=== PATIENT | male | born 1970 | race Two or more races ===

== ENCOUNTER 2016-05-23 11:35 | Inpatient (IN) | payer OTHER ==
[2016-05-23 12:32] VITALS: BMI 27.0
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
[2016-05-23] MEDS ORDERED: LOPERAMIDE HCL 2 MG CAPSULE PO PRN (15:14)
[2016-05-23] MEDS ORDERED: NICOTINE POLACRILEX 2 MG GUM BC PRN (15:14)
[2016-05-23] MEDS ORDERED: ACETAMINOPHEN 325 MG TABLET (FP) PO PRN (15:14)
[2016-05-23] MEDS ORDERED: P-EPHED 60MG/TRIPROLIDI 2.5MG TABLET PO PRN (15:14)
[2016-05-23] MEDS ORDERED: MAGNESIUM HYDROX 2400MG/30ML ORAL SUSPENSION 30 ML CUP PO PRN (15:14)
[2016-05-23] MEDS ORDERED: guaiFENesin/D-METHORPHAN HB 10 ML UNIT-DOSE CUPS PO PRN (15:14)
[2016-05-23] MEDS ORDERED: MENTHOL/PHENOL 1 EACH UD MM PRN (15:14)
[2016-05-23] MEDS ORDERED: MAGNESIUM CITRATE 300 ML BOTTLE PO PRN (15:14)
[2016-05-23] MEDS ORDERED: METHADONE HCL 10 MG TABLET (FOR DETOX USE ONLY) PO ONE ×2 (15:36→23:00)
[2016-05-23] MEDS: diazePAM 5 MG TABLET PO PRN (15:43)
[2016-05-23] MEDS ORDERED: INSULIN (NOVOLOG) ASPART 100 UNITS/ML 10ML VIAL ONE (16:55)
[2016-05-23] MEDS: metFORMIN HCL 500 MG TABLET (FP) PO SCH (17:36)
[2016-05-23] MEDS: NICOTINE 14 MG/24 HOURS TOPICAL PATCH TD SCH (17:36)
[2016-05-23] MEDS: INSULIN SLIDING SCALE (NOVOLOG) 1 VIAL SQ SCH (17:37)
[2016-05-23 18:54] LABS: URINE APPEARANCE CLEAR; URINE BILIRUBIN NEGATIVE (NEGATIVE); URINE BLOOD NEGATIVE (NEGATIVE); URINE COLOR LTYELLOW; URINE GLUCOSE (UA) 3+ (NEGATIVE); URINE KETONE NEGATIVE (NEGATIVE); URINE LEUK ESTERASE NEGATIVE (NEGATIVE); URINE NITRITE NEGATIVE (NEGATIVE); URINE PROTEIN NEGATIVE (NEGATIVE); URINE UROBILINOGEN NEGATIVE E.U./dl (0.2-1.0)
[2016-05-23] MEDS: THIAMINE HCL 100 MG TABLET (FP) PO SCH (22:04)
[2016-05-23] MEDS: INSULIN DETEMIR 100 UNITS/ML MDV SQ SCH (22:05)
[2016-05-23] MEDS: diphenhydrAMINE HCL 50 MG CAPSULE PO PRN (22:06)
[2016-05-24] MEDS ORDERED: INSULIN (NOVOLOG) ASPART 100 UNITS/ML 10ML VIAL ONE ×2 (07:20→16:44)
[2016-05-24] MEDS: metFORMIN HCL 500 MG TABLET (FP) PO SCH ×2 (07:23→16:30)
[2016-05-24] MEDS: INSULIN SLIDING SCALE (NOVOLOG) 1 VIAL SQ SCH ×2 (07:24→16:30)
[2016-05-24] MEDS ORDERED: METHADONE HCL 10 MG TABLET (FOR DETOX USE ONLY) PO ONE (10:00)
--- NOTE | 2016-05-24 10:07 | PN ---
[facility] COWS - Scale Resting Pulse: 0= [place] 80 or Below Sweatin=Flushed/Facial Moisture Restless Observation: 1= Difficult to Sit Still Pupil Size: 0= Normal to Room Light Bone or Joint Aches: 2= Severe Diffuse Aches Runny Nose/ Eye Tearin= Runny Nose/Eyes GI Upset > 30mins: 2= Nausea/Diarrhea Tremor Observation of Outstretched Hands: 2= Slight Tremor Visible Yawning Observation: 1= 1-2x During Session Anxiety or Irritability: 2=Irritable/Anxious Goose Flesh Skin: 0=Smooth Skin COWS Score: 14 [facility] Progress Note (SOAP) Subjective: Anxiety,tremors,interrupted sleep,sweating,muscle aches,diarrhea Objective: 05/24/16 10:06 Vital Signs - 8 hr 05/24/16 05/24/16 05/24/16 03:55 06:35 09:21 Temperature 97.6 F 98.7 F Pulse Rate 64 77 Respiratory 18 18 18 Rate Blood Pressure 128/77 121/76 Laboratory Tests 05/23/16 05/23/16 05/23/16 13:00 13:44 16:22 POC Glucometer 323 337 Urine Color Ltyellow Urine Appearance Clear Urine pH 5.0 Ur Specific [place] 1.021 Urine Protein Negative Urine Glucose (UA) 3+ H Urine Ketones Negative Urine Blood Negative Urine Nitrite Negative Urine Bilirubin Negative Urine Urobilinogen Negative Ur Leukocyte Esterase Negative 05/23/16 05/24/16 21:41 05:38 POC Glucometer 308 219 Urine Color Urine Appearance Urine pH Ur Specific [place] Urine Protein Urine Glucose (UA) Urine Ketones Urine Blood Urine Nitrite Urine Bilirubin Urine Urobilinogen Ur Leukocyte Esterase labs noted Assessment: 05/24/16 10:06 Withdrawal sx. Plan: Continue detox
[2016-05-24] MEDS: NICOTINE 14 MG/24 HOURS TOPICAL PATCH TD SCH (10:18)
[2016-05-24] MEDS: PRENATAL VITAMINS W/ FOLIC ACID TABLET (FP) PO SCH (10:18)
[2016-05-24] MEDS: diazePAM 5 MG TABLET PO PRN ×2 (10:18→22:14)
[2016-05-24 10:23] LABS: MCH 29.5 pg (25.7-33.7); MCHC 32.9 g/dl (32.0-35.9); MEAN CELL VOLUME 89.7 fl (80-96); MEAN PLT VOLUME 8.1 fl (7.5-11.1); PLATELET COUNT 394 K/MM3 (134-434); WHITE BLOOD COUNT 10.1 K/mm3 (4.0-10.0)
[2016-05-24 10:43] LABS: ALBUMIN 3.6 g/dl (3.4-5.0); ALK PHOS 101 U/L (45-117); ANION GAP 9 (8-16); BILIRUBIN,TOTAL 0.7 mg/dL (0.2-1.0); CALCIUM 8.9 mg/dL (8.5-10.1); CO2 30 mmol/L (21-32); CREATININE 0.7 mg/dL (0.7-1.3); GLUCOSE,RANDOM 294 mg/dL (74-106); SGOT/AST 24 U/L (15-37); SGPT/ALT 36 U/L (12-78); TOT PROT 7.6 g/dl (6.4-8.2)
--- NOTE | 2016-05-24 12:36 | EKG ---
Test Reason : Blood Pressure : / mmHG Vent. Rate : 065 BPM Atrial Rate : 065 BPM P-R Int : 164 ms QRS Dur : 090 ms QT Int : 388 ms P-R-T Axes : 056 026 013 degrees QTc Int : 403 ms NORMAL SINUS RHYTHM NORMAL ECG NO PREVIOUS ECGS AVAILABLE Confirmed by YNES MORALES MD ([id number]) on 05/24/2016 12:35:46 PM Referred By: Confirmed By:YNES MORALES MD
[2016-05-24] MEDS: IBUPROFEN 400 MG TABLET (FP) PO PRN ×2 (13:10→21:39)
[2016-05-24] MEDS: hydrOXYzine PAMOATE 25 MG CAPSULE (FP) PO PRN (17:36)
[2016-05-24] MEDS: MAG HYDROX/AL HYDROX/SIMETH 30 ML UNIT-DOSE CUP PO PRN (21:41)
[2016-05-24] MEDS: INSULIN DETEMIR 100 UNITS/ML MDV SQ SCH (21:58)
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
[2016-05-24] MEDS: THIAMINE HCL 100 MG TABLET (FP) PO SCH (22:11)
[2016-05-25] MEDS: diazePAM 5 MG TABLET PO PRN ×3 (05:41→21:39)
[2016-05-25] MEDS: metFORMIN HCL 500 MG TABLET (FP) PO SCH ×2 (06:21→17:51)
[2016-05-25] MEDS: INSULIN SLIDING SCALE (NOVOLOG) 1 VIAL SQ SCH ×2 (07:40→17:52)
[2016-05-25] MEDS ORDERED: METHADONE HCL 5 MG TABLET (FOR DETOX USE ONLY) PO ONE (10:00)
[2016-05-25] MEDS: PRENATAL VITAMINS W/ FOLIC ACID TABLET (FP) PO SCH (10:05)
[2016-05-25] MEDS: CYCLOBENZAPRINE HCL 10 MG TABLET (FP) PO PRN (10:06)
[2016-05-25] MEDS: NICOTINE 14 MG/24 HOURS TOPICAL PATCH TD SCH (10:07)
[2016-05-25] MEDS: IBUPROFEN 400 MG TABLET (FP) PO PRN (10:07)
--- NOTE | 2016-05-25 13:01 | PN ---
S COWS - Scale Resting Pulse: 0= [place] 80 or Below Sweatin= Chills/Flushing Restless Observation: 0= Sits Still Pupil Size: 0= Normal to Room Light Bone or Joint Aches: 1= Mild Discomfort Runny Nose/ Eye Tearin= Nasal Congestion GI Upset > 30mins: 2= Nausea/Diarrhea Tremor Observation of Outstretched Hands: 2= Slight Tremor Visible Yawning Observation: 1= 1-2x During Session Anxiety or Irritability: 2=Irritable/Anxious Goose Flesh Skin: 3=Piloerection COWS Score: 13 [facility] Progress Note (SOAP) Subjective: Tremors, Fatigue, Diarrhea, H/A, Nausea. Objective: PT. A & O X 3. 05/25/16 12:58 Vital Signs Temperature 97.1 F L 05/25/16 10:26 Pulse Rate 73 05/25/16 10:26 Respiratory Rate 18 05/25/16 10:26 Blood Pressure 134/86 05/25/16 10:26 O2 Sat by Pulse Oximetry (%) Laboratory Last Values WBC 10.1 K/mm3 (4.0-10.0) H 05/24/16 06:00 RBC 4.29 M/mm3 (4.00-5.60) 05/24/16 06:00 Hgb 12.7 GM/dL (11.7-16.9) 05/24/16 06:00 Hct 38.5 % (35.4-49) 05/24/16 06:00 MCV 89.7 fl (80-96) 05/24/16 06:00 MCHC 32.9 g/dl (32.0-35.9) 05/24/16 06:00 RDW 14.0 % (11.9-15.9) 05/24/16 06:00 Plt Count 394 K/MM3 (134-434) 05/24/16 06:00 MPV 8.1 fl (7.5-11.1) 05/24/16 06:00 Sodium 139 mmol/L (136-145) 05/24/16 06:00 Potassium 4.6 mmol/L (3.5-5.1) 05/24/16 06:00 Chloride 100 mmol/L (98-107) 05/24/16 06:00 Carbon Dioxide 30 mmol/L (21-32) 05/24/16 06:00 Anion Gap 9 (8-16) 05/24/16 06:00 BUN 18 mg/dL (7-18) D 05/24/16 06:00 Creatinine 0.7 mg/dL (0.7-1.3) 05/24/16 06:00 Creat Clearance w eGFR > 60 (>60) 05/24/16 06:00 POC Glucometer 198 UNITS (()) 05/25/16 05:39 Random Glucose 294 mg/dL (74-106) H 05/24/16 06:00 Calcium 8.9 mg/dL (8.5-10.1) 05/24/16 06:00 Total Bilirubin 0.7 mg/dL (0.2-1.0) D 05/24/16 06:00 AST 24 U/L (15-37) 05/24/16 06:00 ALT 36 U/L (12-78) 05/24/16 06:00 Alkaline Phosphatase 101 U/L (45-117) 05/24/16 06:00 Total Protein 7.6 g/dl (6.4-8.2) 05/24/16 06:00 Albumin 3.6 g/dl (3.4-5.0) 05/24/16 06:00 Urine Color Ltyellow 05/23/16 13:00 Urine Appearance Clear 05/23/16 13:00 Urine pH 5.0 (5.0-8.0) 05/23/16 13:00 Ur Specific [place] 1.021 (1.001-1.035) 05/23/16 13:00 Urine Protein Negative (NEGATIVE) 05/23/16 13:00 Urine Glucose (UA) 3+ (NEGATIVE) H 05/23/16 13:00 Urine Ketones Negative (NEGATIVE) 05/23/16 13:00 Urine Blood Negative (NEGATIVE) 05/23/16 13:00 Urine Nitrite Negative (NEGATIVE) 05/23/16 13:00 Urine Bilirubin Negative (NEGATIVE) 05/23/16 13:00 Urine Urobilinogen Negative E.U./dl (0.2-1.0) 05/23/16 13:00 Ur Leukocyte Esterase Negative (NEGATIVE) 05/23/16 13:00 RPR Titer Nonreactive (NONREACTIVE) 05/24/16 06:00 LABS NOTED. Assessment: 05/25/16 12:59 WITHDRAWAL SYMPTOMS. Plan: CONTINUE DETOX. ADVISED PATIENT TO FOLLOW-UP WITH [facility] / REHAB MEDICAL PROVIDER AFTER DISCHARGE FROM DETOX FOR GENERAL MEDICAL ASSESSMENT AND FOR ANY ABNORMAL ADMISSION LAB VALUES.
[2016-05-25] MEDS: THIAMINE HCL 100 MG TABLET (FP) PO SCH (21:36)
[2016-05-25] MEDS: diphenhydrAMINE HCL 50 MG CAPSULE PO PRN (21:37)
[2016-05-25] MEDS: INSULIN DETEMIR 100 UNITS/ML MDV SQ SCH (21:41)
[2016-05-26] MEDS: CYCLOBENZAPRINE HCL 10 MG TABLET (FP) PO PRN (05:38)
[2016-05-26] MEDS: diazePAM 5 MG TABLET PO PRN (05:38)
[2016-05-26] MEDS ORDERED: INSULIN (NOVOLOG) ASPART 100 UNITS/ML 10ML VIAL ONE ×2 (07:38→16:47)
[2016-05-26] MEDS: metFORMIN HCL 500 MG TABLET (FP) PO SCH ×2 (07:57→16:30)
[2016-05-26] MEDS: INSULIN SLIDING SCALE (NOVOLOG) 1 VIAL SQ SCH ×2 (07:58→16:30)
[2016-05-26] MEDS ORDERED: METHADONE HCL 5 MG TABLET (FOR DETOX USE ONLY) PO ONE (10:00)
[2016-05-26] MEDS: PRENATAL VITAMINS W/ FOLIC ACID TABLET (FP) PO SCH (10:10)
[2016-05-26] MEDS: NICOTINE 14 MG/24 HOURS TOPICAL PATCH TD SCH (10:11)
--- NOTE | 2016-05-26 15:06 | PN ---
[facility] Progress Note (SOAP) Subjective: Interrupted sleep, Body Aches, H/A. Objective: PT. A & O X 3, OBSERVED AMBULATING ON UNIT. 05/26/16 15:04 Vital Signs Temperature 95.9 F L 05/26/16 10:53 Pulse Rate 77 05/26/16 10:53 Respiratory Rate 18 05/26/16 10:53 Blood Pressure 131/86 05/26/16 10:53 O2 Sat by Pulse Oximetry (%) Laboratory Last Values WBC 10.1 K/mm3 (4.0-10.0) H 05/24/16 06:00 RBC 4.29 M/mm3 (4.00-5.60) 05/24/16 06:00 Hgb 12.7 GM/dL (11.7-16.9) 05/24/16 06:00 Hct 38.5 % (35.4-49) 05/24/16 06:00 MCV 89.7 fl (80-96) 05/24/16 06:00 MCHC 32.9 g/dl (32.0-35.9) 05/24/16 06:00 RDW 14.0 % (11.9-15.9) 05/24/16 06:00 Plt Count 394 K/MM3 (134-434) 05/24/16 06:00 MPV 8.1 fl (7.5-11.1) 05/24/16 06:00 Sodium 139 mmol/L (136-145) 05/24/16 06:00 Potassium 4.6 mmol/L (3.5-5.1) 05/24/16 06:00 Chloride 100 mmol/L (98-107) 05/24/16 06:00 Carbon Dioxide 30 mmol/L (21-32) 05/24/16 06:00 Anion Gap 9 (8-16) 05/24/16 06:00 BUN 18 mg/dL (7-18) D 05/24/16 06:00 Creatinine 0.7 mg/dL (0.7-1.3) 05/24/16 06:00 Creat Clearance w eGFR > 60 (>60) 05/24/16 06:00 POC Glucometer 216 UNITS (()) 05/26/16 05:37 Random Glucose 294 mg/dL (74-106) H 05/24/16 06:00 Calcium 8.9 mg/dL (8.5-10.1) 05/24/16 06:00 Total Bilirubin 0.7 mg/dL (0.2-1.0) D 05/24/16 06:00 AST 24 U/L (15-37) 05/24/16 06:00 ALT 36 U/L (12-78) 05/24/16 06:00 Alkaline Phosphatase 101 U/L (45-117) 05/24/16 06:00 Total Protein 7.6 g/dl (6.4-8.2) 05/24/16 06:00 Albumin 3.6 g/dl (3.4-5.0) 05/24/16 06:00 Urine Color Ltyellow 05/23/16 13:00 Urine Appearance Clear 05/23/16 13:00 Urine pH 5.0 (5.0-8.0) 05/23/16 13:00 Ur Specific [place] 1.021 (1.001-1.035) 05/23/16 13:00 Urine Protein Negative (NEGATIVE) 05/23/16 13:00 Urine Glucose (UA) 3+ (NEGATIVE) H 05/23/16 13:00 Urine Ketones Negative (NEGATIVE) 05/23/16 13:00 Urine Blood Negative (NEGATIVE) 05/23/16 13:00 Urine Nitrite Negative (NEGATIVE) 05/23/16 13:00 Urine Bilirubin Negative (NEGATIVE) 05/23/16 13:00 Urine Urobilinogen Negative E.U./dl (0.2-1.0) 05/23/16 13:00 Ur Leukocyte Esterase Negative (NEGATIVE) 05/23/16 13:00 RPR Titer Nonreactive (NONREACTIVE) 05/24/16 06:00 LABS NOTED. Assessment: 05/26/16 15:05 WITHDRAWAL SYMPTOMS. Plan: CONTINUE DETOX. ADVISED PATIENT TO FOLLOW-UP WITH [facility] / REHAB MEDICAL PROVIDER AFTER DISCHARGER FROM DETOX FOR GENERAL MEDICAL ASSESSMENT AND FOR ABNORMAL ADMISSION LAB VALUES.
[2016-05-26] MEDS: hydrOXYzine PAMOATE 25 MG CAPSULE (FP) PO PRN (17:38)
[2016-05-26] MEDS: diphenhydrAMINE HCL 50 MG CAPSULE PO PRN (22:14)
[2016-05-26] MEDS: THIAMINE HCL 100 MG TABLET (FP) PO SCH (22:14)
[2016-05-26] MEDS: INSULIN DETEMIR 100 UNITS/ML MDV SQ SCH (22:15)
[2016-05-27] MEDS: MAG HYDROX/AL HYDROX/SIMETH 30 ML UNIT-DOSE CUP PO PRN (03:41)
[2016-05-27] MEDS: CYCLOBENZAPRINE HCL 10 MG TABLET (FP) PO PRN (06:00)
[2016-05-27] MEDS: metFORMIN HCL 500 MG TABLET (FP) PO SCH ×2 (06:01→16:30)
[2016-05-27] MEDS: hydrOXYzine PAMOATE 25 MG CAPSULE (FP) PO PRN ×2 (06:01→17:36)
[2016-05-27] MEDS: INSULIN SLIDING SCALE (NOVOLOG) 1 VIAL SQ SCH ×2 (06:59→16:30)
[2016-05-27] MEDS ORDERED: INSULIN (NOVOLOG) ASPART 100 UNITS/ML 10ML VIAL ONE ×2 (07:23→16:44)
[2016-05-27] MEDS ORDERED: METHADONE HCL 10 MG TABLET (FOR DETOX USE ONLY) PO ONE (10:00)
[2016-05-27] MEDS: PRENATAL VITAMINS W/ FOLIC ACID TABLET (FP) PO SCH (10:27)
[2016-05-27] MEDS: NICOTINE 14 MG/24 HOURS TOPICAL PATCH TD SCH (10:27)
--- NOTE | 2016-05-27 15:34 | PN ---
S Progress Note (SOAP) Subjective: Anxious, nausea, sweating, interrupted sleep Objective: 05/27/16 15:31 Last Vital Signs Temp Pulse Resp BP Pulse Ox 96.3 F L 87 20 120/77 05/27/16 13:55 05/27/16 13:55 05/27/16 13:55 05/27/16 13:55 Laboratory Tests 05/23/16 05/23/16 05/23/16 13:00 13:44 16:22 WBC RBC Hgb Hct MCV MCHC RDW Plt Count MPV Sodium Potassium Chloride Carbon Dioxide Anion Gap BUN Creatinine Creat Clearance w eGFR POC Glucometer 323 337 Random Glucose Calcium Total Bilirubin AST ALT Alkaline Phosphatase Total Protein Albumin Urine Color Ltyellow Urine Appearance Clear Urine pH 5.0 Ur Specific [place] 1.021 Urine Protein Negative Urine Glucose (UA) 3+ H Urine Ketones Negative Urine Blood Negative Urine Nitrite Negative Urine Bilirubin Negative Urine Urobilinogen Negative Ur Leukocyte Esterase Negative RPR Titer 05/23/16 05/24/16 05/24/16 21:41 05:38 06:00 WBC 10.1 H RBC 4.29 Hgb 12.7 Hct 38.5 MCV 89.7 MCHC 32.9 RDW 14.0 Plt Count 394 MPV 8.1 Sodium Potassium Chloride Carbon Dioxide Anion Gap BUN Creatinine Creat Clearance w eGFR POC Glucometer 308 219 Random Glucose Calcium Total Bilirubin AST ALT Alkaline Phosphatase Total Protein Albumin Urine Color Urine Appearance Urine pH Ur Specific [place] Urine Protein Urine Glucose (UA) Urine Ketones Urine Blood Urine Nitrite Urine Bilirubin Urine Urobilinogen Ur Leukocyte Esterase RPR Titer 05/24/16 05/24/16 05/24/16 06:00 06:00 16:16 WBC RBC Hgb Hct MCV MCHC RDW Plt Count MPV Sodium 139 Potassium 4.6 Chloride 100 Carbon Dioxide 30 Anion Gap 9 BUN 18 D Creatinine 0.7 Creat Clearance w eGFR > 60 POC Glucometer 320 Random Glucose 294 H Calcium 8.9 Total Bilirubin 0.7 D AST 24 ALT 36 Alkaline Phosphatase 101 Total Protein 7.6 Albumin 3.6 Urine Color Urine Appearance Urine pH Ur Specific [place] Urine Protein Urine Glucose (UA) Urine Ketones Urine Blood Urine Nitrite Urine Bilirubin Urine Urobilinogen Ur Leukocyte Esterase RPR Titer Nonreactive 05/24/16 05/25/16 05/25/16 21:33 05:39 16:31 WBC RBC Hgb Hct MCV MCHC RDW Plt Count MPV Sodium Potassium Chloride Carbon Dioxide Anion Gap BUN Creatinine Creat Clearance w eGFR POC Glucometer 181 198 182 Random Glucose Calcium Total Bilirubin AST ALT Alkaline Phosphatase Total Protein Albumin Urine Color Urine Appearance Urine pH Ur Specific [place] Urine Protein Urine Glucose (UA) Urine Ketones Urine Blood Urine Nitrite Urine Bilirubin Urine Urobilinogen Ur Leukocyte Esterase RPR Titer 05/25/16 05/26/16 05/26/16 21:35 05:37 16:17 WBC RBC Hgb Hct MCV MCHC RDW Plt Count MPV Sodium Potassium Chloride Carbon Dioxide Anion Gap BUN Creatinine Creat Clearance w eGFR POC Glucometer 280 216 390 Random Glucose Calcium Total Bilirubin AST ALT Alkaline Phosphatase Total Protein Albumin Urine Color Urine Appearance Urine pH Ur Specific [place] Urine Protein Urine Glucose (UA) Urine Ketones Urine Blood Urine Nitrite Urine Bilirubin Urine Urobilinogen Ur Leukocyte Esterase RPR Titer 05/26/16 05/27/16 21:34 06:00 WBC RBC Hgb Hct MCV MCHC RDW Plt Count MPV Sodium Potassium Chloride Carbon Dioxide Anion Gap BUN Creatinine Creat Clearance w eGFR POC Glucometer 211 294 Random Glucose Calcium Total Bilirubin AST ALT Alkaline Phosphatase Total Protein Albumin Urine Color Urine Appearance Urine pH Ur Specific [place] Urine Protein Urine Glucose (UA) Urine Ketones Urine Blood Urine Nitrite Urine Bilirubin Urine Urobilinogen Ur Leukocyte Esterase RPR Titer Labs noted Assessment: 05/27/16 15:32 Withdrawal symptoms Plan: Continue detox
[2016-05-27] MEDS: INSULIN DETEMIR 100 UNITS/ML MDV SQ SCH (22:00)
[2016-05-27] MEDS: THIAMINE HCL 100 MG TABLET (FP) PO SCH (22:00)
[2016-05-27] MEDS: diphenhydrAMINE HCL 50 MG CAPSULE PO PRN (22:00)
[2016-05-28] MEDS: diphenhydrAMINE HCL 50 MG CAPSULE PO PRN (02:01)
[2016-05-28] MEDS: CYCLOBENZAPRINE HCL 10 MG TABLET (FP) PO PRN (05:58)
[2016-05-28] MEDS ORDERED: METHADONE HCL 5 MG TABLET (FOR DETOX USE ONLY) PO ONE (06:00)
[2016-05-28] MEDS: MAG HYDROX/AL HYDROX/SIMETH 30 ML UNIT-DOSE CUP PO PRN (06:01)
[2016-05-28] MEDS: INSULIN SLIDING SCALE (NOVOLOG) 1 VIAL SQ SCH (07:33)
[2016-05-28] MEDS: metFORMIN HCL 500 MG TABLET (FP) PO SCH (07:33)
[2016-05-28] MEDS ORDERED: INSULIN (NOVOLOG) ASPART 100 UNITS/ML 10ML VIAL ONE (07:41)
[2016-05-28 09:49] VITALS: BP 125/84; PULSE 20; TEMP 96.4
[2016-05-28] MEDS: PRENATAL VITAMINS W/ FOLIC ACID TABLET (FP) PO SCH (10:07)
[2016-05-28] MEDS: NICOTINE 14 MG/24 HOURS TOPICAL PATCH TD SCH (10:08)
--- NOTE | 2016-05-28 11:50 | DS ---
[facility] Detox Discharge Summary Admission Date: 05/23/16 Discharge Date: 05/28/16 - History Present History: Cocaine Dependence, Opioid Dependence Pertinent Past History: type II DM HEP C - Physical Exam Results Vital Signs: Vital Signs Temperature 96.4 F L 05/28/16 09:48 Pulse Rate 20 L 05/28/16 09:48 Respiratory Rate 87 H 05/28/16 09:48 Blood Pressure 125/84 05/28/16 09:48 O2 Sat by Pulse Oximetry (%) Pertinent Admission Physical Exam Findings: Withdrawal sx. Laboratory Last Values WBC 10.1 K/mm3 (4.0-10.0) H 05/24/16 06:00 RBC 4.29 M/mm3 (4.00-5.60) 05/24/16 06:00 Hgb 12.7 GM/dL (11.7-16.9) 05/24/16 06:00 Hct 38.5 % (35.4-49) 05/24/16 06:00 MCV 89.7 fl (80-96) 05/24/16 06:00 MCHC 32.9 g/dl (32.0-35.9) 05/24/16 06:00 RDW 14.0 % (11.9-15.9) 05/24/16 06:00 Plt Count 394 K/MM3 (134-434) 05/24/16 06:00 MPV 8.1 fl (7.5-11.1) 05/24/16 06:00 Sodium 139 mmol/L (136-145) 05/24/16 06:00 Potassium 4.6 mmol/L (3.5-5.1) 05/24/16 06:00 Chloride 100 mmol/L (98-107) 05/24/16 06:00 Carbon Dioxide 30 mmol/L (21-32) 05/24/16 06:00 Anion Gap 9 (8-16) 05/24/16 06:00 BUN 18 mg/dL (7-18) D 05/24/16 06:00 Creatinine 0.7 mg/dL (0.7-1.3) 05/24/16 06:00 Creat Clearance w eGFR > 60 (>60) 05/24/16 06:00 POC Glucometer 315 UNITS (()) 05/28/16 05:59 Random Glucose 294 mg/dL (74-106) H 05/24/16 06:00 Calcium 8.9 mg/dL (8.5-10.1) 05/24/16 06:00 Total Bilirubin 0.7 mg/dL (0.2-1.0) D 05/24/16 06:00 AST 24 U/L (15-37) 05/24/16 06:00 ALT 36 U/L (12-78) 05/24/16 06:00 Alkaline Phosphatase 101 U/L (45-117) 05/24/16 06:00 Total Protein 7.6 g/dl (6.4-8.2) 05/24/16 06:00 Albumin 3.6 g/dl (3.4-5.0) 05/24/16 06:00 Urine Color Ltyellow 05/23/16 13:00 Urine Appearance Clear 05/23/16 13:00 Urine pH 5.0 (5.0-8.0) 05/23/16 13:00 Ur Specific [place] 1.021 (1.001-1.035) 05/23/16 13:00 Urine Protein Negative (NEGATIVE) 05/23/16 13:00 Urine Glucose (UA) 3+ (NEGATIVE) H 05/23/16 13:00 Urine Ketones Negative (NEGATIVE) 05/23/16 13:00 Urine Blood Negative (NEGATIVE) 05/23/16 13:00 Urine Nitrite Negative (NEGATIVE) 05/23/16 13:00 Urine Bilirubin Negative (NEGATIVE) 05/23/16 13:00 Urine Urobilinogen Negative E.U./dl (0.2-1.0) 05/23/16 13:00 Ur Leukocyte Esterase Negative (NEGATIVE) 05/23/16 13:00 RPR Titer Nonreactive (NONREACTIVE) 05/24/16 06:00 labs noted - Treatment Hospital Course: Detox Protocol Followed, Detoxed Safely, Responded well, Discharged Condition Good, Rehab Referral Accepted Patient has Accepted a Rehab Referral to: [facility] - Medication Discharge Medications: Ambulatory Orders Insulin Glargine,Hum.rec.anlog [Lantus Solostar PEN -] 20 units SQ HS 05/23/16 Metformin HCl [Glucophage -] 500 mg PO BID 05/23/16 - Diagnosis (1) Cocaine dependence, uncomplicated Current Visit: Yes Status: Acute (2) Nicotine dependence Current Visit: Yes Status: Acute Qualifiers: Nicotine product type: cigarettes Substance use status: in withdrawal Qualified Code(s): F17.213 - Nicotine dependence, cigarettes, with withdrawal (3) Opioid dependence with withdrawal Current Visit: Yes Status: Acute (4) Diabetes mellitus Current Visit: Yes Status: Chronic Qualifiers: Diabetes mellitus complication status: without complication Diabetes mellitus terminal gauger insulin use: without assisted use (5) Hepatitis C Current Visit: Yes Status: Chronic Qualifiers: Viral hepatitis chronicity: unspecified Hepatic coma status: without hepatic coma Qualified Code(s): B19.20 - Unspecified viral hepatitis C without hepatic coma - AMA Did Patient Leave Against Medical Advice: No
--- NOTE | 2016-05-29 23:02 | EKG ---
Test Reason : Blood Pressure : / mmHG Vent. Rate : 067 BPM Atrial Rate : 067 BPM P-R Int : 158 ms QRS Dur : 086 ms QT Int : 382 ms P-R-T Axes : 060 043 019 degrees QTc Int : 403 ms NORMAL SINUS RHYTHM POSSIBLE LEFT ATRIAL ENLARGEMENT BORDERLINE ECG WHEN COMPARED WITH ECG OF 23-MAY-2016 14:50, NO SIGNIFICANT CHANGE WAS FOUND Confirmed by EMILY LAST MD ([id number]) on 05/29/2016 11:01:27 PM Referred By: Confirmed By:EMILY LAST MD
== END 2016-05-28 11:54 | disposition other institution (70) | DRG 773 ==
LOC: YASAS 11:35 → Y3N 14:53
PROVIDERS: ADMIT Internal Medicine; ATTEND Internal Medicine
PROC: HZ2ZZZZ Detoxification Services for Substance Abuse Treatment (ICD-10-PCS; principal; 2016-05-23)
DX: F11.23 Opioid dependence with withdrawal (principal); F14.20 Cocaine dependence, uncomplicated; F17.213 Nicotine dependence, cigarettes, with withdrawal; E11.9 Type 2 diabetes mellitus without complications; B19.20 Unspecified viral hepatitis C without hepatic coma; R74.0 Nonspecific elevation of levels of transaminase and lactic acid dehydrogenase [LDH]; Z79.4 Long term (current) use of insulin
CPT/HCPCS: 36415; 80053; 81003; 85027; 86593; 93005; 93010

== ENCOUNTER 2016-05-28 11:39 | Inpatient (IN) | payer OTHER ==
[2016-05-28] MEDS ORDERED: guaiFENesin/D-METHORPHAN HB 10 ML UNIT-DOSE CUPS PO PRN (12:32)
[2016-05-28] MEDS ORDERED: MAGNESIUM CITRATE 300 ML BOTTLE PO PRN (12:32)
[2016-05-28] MEDS ORDERED: P-EPHED 60MG/TRIPROLIDI 2.5MG TABLET PO PRN (12:32)
[2016-05-28] MEDS ORDERED: MAGNESIUM HYDROX 2400MG/30ML ORAL SUSPENSION 30 ML CUP PO PRN (12:32)
[2016-05-28] MEDS ORDERED: ACETAMINOPHEN 325 MG TABLET (FP) PO PRN (12:32)
[2016-05-28] MEDS ORDERED: IBUPROFEN 400 MG TABLET (FP) PO PRN (12:32)
[2016-05-28] MEDS ORDERED: diphenhydrAMINE HCL 50 MG CAPSULE PO PRN (12:32)
[2016-05-28] MEDS ORDERED: MENTHOL/PHENOL 1 EACH UD MM PRN (12:32)
[2016-05-28] MEDS ORDERED: LOPERAMIDE HCL 2 MG CAPSULE PO PRN (12:32)
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
[2016-05-28] MEDS: metFORMIN HCL 500 MG TABLET (FP) PO SCH (16:54)
[2016-05-28] MEDS ORDERED: INSULIN (NOVOLOG) ASPART 100 UNITS/ML 10ML VIAL ONE (16:56)
[2016-05-28] MEDS: INSULIN (NOVOLOG) ASPART 100 UNITS/ML 10ML VIAL SQ SCH (16:57)
[2016-05-28] MEDS: THIAMINE HCL 100 MG TABLET (FP) PO SCH (21:32)
[2016-05-28] MEDS: SUVOREXANT 10 MG TABLET PO PRN (21:33)
[2016-05-28] MEDS: INSULIN DETEMIR 100 UNITS/ML MDV SQ SCH (21:34)
[2016-05-28] MEDS: MAG HYDROX/AL HYDROX/SIMETH 30 ML UNIT-DOSE CUP PO PRN (23:12)
[2016-05-29] MEDS ORDERED: PANTOPRAZOLE 20 MG TABLET (FP) PO ONE (02:52)
[2016-05-29] MEDS: metFORMIN HCL 500 MG TABLET (FP) PO SCH ×2 (06:20→17:14)
[2016-05-29] MEDS ORDERED: INSULIN (NOVOLOG) ASPART 100 UNITS/ML 10ML VIAL ONE ×2 (06:22→17:13)
[2016-05-29] MEDS: INSULIN (NOVOLOG) ASPART 100 UNITS/ML 10ML VIAL SQ SCH ×2 (06:22→17:13)
[2016-05-29] MEDS: PRENATAL VITAMINS W/ FOLIC ACID TABLET (FP) PO SCH (09:59)
[2016-05-29] MEDS: MAG HYDROX/AL HYDROX/SIMETH 30 ML UNIT-DOSE CUP PO PRN (10:07)
[2016-05-29] MEDS: THIAMINE HCL 100 MG TABLET (FP) PO SCH (21:19)
[2016-05-29] MEDS: INSULIN DETEMIR 100 UNITS/ML MDV SQ SCH (21:20)
[2016-05-29] MEDS: SUVOREXANT 10 MG TABLET PO PRN (21:20)
[2016-05-29] MEDS ORDERED: PANTOPRAZOLE 40 MG TABLET (FP) PO SCH (22:00)
[2016-05-30 06:59] VITALS: BP 114/72; PULSE 75; TEMP 97.9
[2016-05-30] MEDS: INSULIN (NOVOLOG) ASPART 100 UNITS/ML 10ML VIAL SQ SCH (07:57)
[2016-05-30] MEDS: metFORMIN HCL 500 MG TABLET (FP) PO SCH (07:59)
[2016-05-30] MEDS ORDERED: INSULIN (NOVOLOG) ASPART 100 UNITS/ML 10ML VIAL ONE (08:00)
[2016-05-30] MEDS: PRENATAL VITAMINS W/ FOLIC ACID TABLET (FP) PO SCH (10:10)
--- NOTE | 2016-05-31 13:30 | PN ---
[facility] Progress Note Note: signed out ama on 05/31/15, please see medical staff notes.
== END 2016-05-30 14:50 | disposition left against medical advice (07) | DRG 770 ==
LOC: YASAS 11:39 → Y5N 11:40
PROVIDERS: ADMIT Psychiatry & Neurology Psychiatry; ATTEND Psychiatry & Neurology Psychiatry
PROC: HZ42ZZZ Group Counseling for Substance Abuse Treatment, Cognitive-Behavioral (ICD-10-PCS; principal; 2016-05-28)
DX: F11.20 Opioid dependence, uncomplicated (principal); F14.20 Cocaine dependence, uncomplicated; F19.282 Other psychoactive substance dependence with psychoactive substance-induced sleep disorder; E11.9 Type 2 diabetes mellitus without complications

== ENCOUNTER 2016-07-30 12:29 | Inpatient (IN) | payer OTHER ==
[2016-07-30 16:09] VITALS: BMI 25.9
--- NOTE | 2016-07-30 17:46 | HP ---
COWS - Scale Resting Pulse: 0= [place] 80 or Below Sweatin= Chills/Flushing Restless Observation: 3= Extraneous Movement Pupil Size: 0= Normal to Room Light Bone or Joint Aches: 2= Severe Diffuse Aches Runny Nose/ Eye Tearin= Runny Nose/Eyes GI Upset > 30mins: 1= Stomach Cramp Tremor Observation: 2= Slight Tremor Visible Yawning Observation: 0= None Anxiety or Irritability: 2=Irritable/Anxious Goose Flesh Skin: 0=Smooth Skin COWS Score: 13 CIWA Score - CIWA Score Nausea/Vomitin-Mild Nausea/No Vomiting Muscle Tremors: 4-Moderate,w/Arms Extend Anxiety: 4-Mod. Anxious/Guarded Agitation: 4-Moderately Restless Paroxysmal Sweats: 1-Minimal Palms Moist Orientation: 1-Uncertain about Date Tacttile Disturbances: 0-None Auditory Disturbances: 0-None Visual Disturbances: 0-None Headache: 0-None Present CIWA-Ar Total Score: 15 Admission ROS S - HPI Chief Complaint: WITHDRAWAL SX Allergies/Adverse Reactions: Allergies Allergy/AdvReac Type Severity Reaction Status Date / Time No Known Allergies Allergy Verified 07/30/16 17:02 History of Present Illness: 45 YEARS OLD MALE WITH LONG HISTORY OF ALCOHOL OPIOID NICOTINE DEPENDENCE HAS DIABETES II AND DEPRESSION IS ADMITTED TO DETOX Exam Limitations: No Limitations - Ebola screening Have you traveled outside of the country in the last 21 days: No Have you had contact with anyone from an Ebola affected area: No Have you been sick,other than usual withdrawal symptoms: No Do you have a fever: No - Review of Systems Constitutional: Chills, Loss of Appetite, Changes in sleep, Unintentional Wgt. Loss, Unexplained wgt Loss EENT: reports: Other (EYE GLASSES) Respiratory: reports: No Symptoms reported Cardiac: reports: No Symptoms Reported GI: reports: Nausea, Poor Appetite, Poor Fluid Intake, Indigestion, Abdominal cramping : reports: No Symptoms Reported Musculoskeletal: reports: Back Pain, Joint Pain, Muscle Pain, Neck Pain Integumentary: reports: Change in Color (IV OPIOID ELBOWS AND NECK) Neuro: reports: Tremors Endocrine: reports: No Symptoms Reported Hematology: reports: No Symptoms Reported Psychiatric: reports: Judgement Intact, Depressed Other Systems: Reviewed and Negative Patient History - Patient Medical History Hx Anemia: No Hx Asthma: No Hx Chronic Obstructive Pulmonary Disease (COPD): No Hx Cancer: No Hx Cardiac Disorders: No Hx Congestive Heart Failure: No Hx Hypertension: No Hx Hypercholesterolemia: No Hx Pacemaker: No HX Cerebrovascular Accident: No Hx Seizures: No Hx Dementia: No Hx Diabetes: Yes Hx Gastrointestinal Disorders: Yes Hx Liver Disease: No Hx Genitourinary Disorders: No Hx Sexually Transmitted Disorders: No Hx Renal Disease (ESRD): No Hx Thyroid Disease: No Hx Human Immunodeficiency Virus (HIV): No (NEGATIVE HX) Hx Hepatitis C: Yes (UNFINISHED TREATMENT YEARS AGO. ) Hx Depression: Yes Hx Suicide Attempt: No Hx Bipolar Disorder: No Hx Schizophrenia: No - Patient Surgical History Past Surgical History: Yes Hx Neurologic Surgery: No Hx Cataract Extraction: No Hx Cardiac Surgery: No Hx Lung Surgery: No Hx Breast Surgery: No Hx Breast Biopsy: No Hx Abdominal Surgery: No Hx Appendectomy: No Hx Cholecystectomy: No Hx Genitourinary Surgery: No Hx Section: No Hx Orthopedic Surgery: No Other Surgical History: right mandible 04/2016 Anesthesia Reaction: No - PPD History Previous Implant?: Yes Documented Results: Negative w/o proof Implanted On Prior [facility] Admission?: Yes Date: 01/29/16 Results: 0 mm PPD to be Administered?: No - Smoking Cessation Smoking history: Current every day smoker Have you smoked in the past 12 months: Yes Aproximately how many cigarettes per day: 10 Cigars Per Day: 0 Hx Chewing Tobacco Use: No Initiated information on smoking cessation: Yes 'Breaking Loose' booklet given: 07/30/16 - Substance & Tx. History Hx Alcohol Use: Yes Hx Substance Use: Yes Substance Use Type: Alcohol, Cocaine, Heroin, Opiates Hx Substance Use Treatment: Yes - Substances Abused Heroin Route: Injection Frequency: Daily Amount used: 18 BAGS Age of first use: 15 Date of Last Use: 07/29/16 Alcohol Route: Oral Frequency: Daily Amount used: 1 12 OZ BEER Age of first use: 19 Date of Last Use: 07/30/16 Cocaine Route: Injection Frequency: Daily Amount used: 2 GRAMS Age of first use: 16 Date of Last Use: 07/29/16 Family Disease History - Family Disease History Family Disease History: Diabetes: Brother, Heart Disease: Mother, Other: Father ( ) Admission Physical Exam [facility] - Vital Signs Vital Signs: Vital Signs - 24 hr 07/30/16 16:08 Temperature 98.1 F Pulse Rate 68 Respiratory 20 Rate Blood Pressure 148/80 - Physical General Appearance: Yes: Appropriately Dressed, Mild Distress, Thin, Tremorous, Irritable, Sweating, Anxious HEENTM: Yes: Hearing grossly Normal, Normal ENT Inspection, Normocephalic, Normal Voice, Other (EYE GLASSES) Respiratory: Yes: Chest Non-Tender, Lungs Clear, Normal Breath Sounds, No Respiratory Distress, No Accessory Muscle Use Neck: Yes: Supple, Trachea in good position Breast: Yes: Breasts Symetrical Cardiology: Yes: Regular Rhythm, Regular Rate, S1, S2 Abdominal: Yes: Non Tender, Soft, Increased Bowel Sounds Genitourinary: Yes: Within Normal Limits Back: Yes: Normal Inspection Musculoskeletal: Yes: full range of Motion, Gait Steady, Back pain, Muscle Pain Extremities: Yes: Normal Range of Motion, Non-Tender, Tremors, Other (ELBOWS IV OPIOID) Neurological: Yes: Alert, Motor Strength 5/5, Normal Response, Depressed Affect Integumentary: Yes: Warm, Track Tubbs Lymphatic: Yes: Within Normal Limits - Diagnostic (1) Cocaine dependence, uncomplicated Current Visit: Yes Status: Chronic (2) Nicotine dependence Current Visit: Yes Status: Acute Qualifiers: Nicotine product type: cigarettes Substance use status: in withdrawal Qualified Code(s): F17.213 - Nicotine dependence, cigarettes, with withdrawal (3) Opioid dependence with withdrawal Current Visit: Yes Status: Acute (4) Hepatitis C Current Visit: Yes Status: Chronic Qualifiers: Viral hepatitis chronicity: unspecified Hepatic coma status: without hepatic coma Qualified Code(s): B19.20 - Unspecified viral hepatitis C without hepatic coma (5) Alcohol dependence with uncomplicated withdrawal Current Visit: Yes Status: Acute (6) Diabetes mellitus, type II, insulin dependent Current Visit: Yes Status: Chronic (7) Depression (emotion) Current Visit: Yes Status: Suspected Qualifiers: Depression Type: dysthymia Qualified Code(s): F34.1 - Dysthymic disorder (8) GERD (gastroesophageal reflux disease) Current Visit: Yes Status: Chronic Qualifiers: Esophagitis presence: without esophagitis Qualified Code(s): K21.9 - Gastro-esophageal reflux disease without esophagitis Cleared for Admission S - Detox or Rehab [facility] Level of Care: Medically Managed Detox Regimen/Protocol: Methadone/Librium [facility] Breath Alcohol Content Breath Alcohol Content: 0 Urine Drug Screen - Results Drug Screen Negative: No Urine Drug Screen Results: RIANA-Cocaine, OPI-Opiates, MTD-Methadone, TCA- Tricyclic Antidepress
[2016-07-30] MEDS ORDERED: chlordiazePOXIDE HCL 25 MG CAPSULE PO PRN (17:56)
[2016-07-30] MEDS ORDERED: guaiFENesin/D-METHORPHAN HB 10 ML UNIT-DOSE CUPS PO PRN (17:56)
[2016-07-30] MEDS ORDERED: MAG HYDROX/AL HYDROX/SIMETH 30 ML UNIT-DOSE CUP PO PRN (17:56)
[2016-07-30] MEDS ORDERED: NICOTINE POLACRILEX 2 MG GUM BC PRN (17:56)
[2016-07-30] MEDS ORDERED: MAGNESIUM HYDROX 2400MG/30ML ORAL SUSPENSION 30 ML CUP PO PRN (17:56)
[2016-07-30] MEDS ORDERED: MENTHOL/PHENOL 1 EACH UD MM PRN (17:56)
[2016-07-30] MEDS ORDERED: LOPERAMIDE HCL 2 MG CAPSULE PO PRN (17:56)
[2016-07-30] MEDS ORDERED: ACETAMINOPHEN 325 MG TABLET (FP) PO PRN (17:56)
[2016-07-30] MEDS ORDERED: MAGNESIUM CITRATE 300 ML BOTTLE PO PRN (17:56)
[2016-07-30] MEDS ORDERED: P-EPHED 60MG/TRIPROLIDI 2.5MG TABLET PO PRN (17:56)
[2016-07-30] MEDS ORDERED: METHADONE HCL 10 MG TABLET (FOR DETOX USE ONLY) PO ONE ×2 (18:45→23:00)
[2016-07-30] MEDS ORDERED: INSULIN (NOVOLOG) ASPART 100 UNITS/ML 10ML VIAL ONE (21:07)
[2016-07-30] MEDS: INSULIN DETEMIR 100 UNITS/ML MDV SQ SCH (21:32)
[2016-07-30] MEDS: INSULIN SLIDING SCALE (NOVOLOG) 1 VIAL SQ SCH (21:32)
[2016-07-30] MEDS: chlordiazePOXIDE HCL 25 MG CAPSULE PO SCH (22:21)
[2016-07-30] MEDS: THIAMINE HCL 100 MG TABLET (FP) PO SCH (22:21)
[2016-07-30] MEDS: diphenhydrAMINE HCL 50 MG CAPSULE PO PRN (22:22)
[2016-07-30] MEDS: RANITIDINE HCL 150 MG TABLET (FP) PO SCH (22:22)
[2016-07-30 23:23] LABS: URINE APPEARANCE CLEAR; URINE BILIRUBIN NEGATIVE (NEGATIVE); URINE BLOOD NEGATIVE (NEGATIVE); URINE COLOR YELLOW; URINE GLUCOSE (UA) 3+ (NEGATIVE); URINE KETONE NEGATIVE (NEGATIVE); URINE LEUK ESTERASE NEGATIVE (NEGATIVE); URINE NITRITE NEGATIVE (NEGATIVE); URINE PROTEIN NEGATIVE (NEGATIVE); URINE UROBILINOGEN NEGATIVE E.U./dl (0.2-1.0)
[2016-07-31] MEDS: chlordiazePOXIDE HCL 25 MG CAPSULE PO SCH ×4 (05:59→22:36)
[2016-07-31] MEDS: INSULIN SLIDING SCALE (NOVOLOG) 1 VIAL SQ SCH ×4 (07:42→22:39)
[2016-07-31] MEDS: metFORMIN HCL 500 MG TABLET (FP) PO SCH ×2 (07:42→18:08)
[2016-07-31] MEDS ORDERED: METHADONE HCL 10 MG TABLET (FOR DETOX USE ONLY) PO SCH (10:00)
[2016-07-31 10:01] LABS: MCH 29.5 pg (25.7-33.7); MCHC 32.9 g/dl (32.0-35.9); MEAN CELL VOLUME 89.8 fl (80-96); MEAN PLT VOLUME 8.2 fl (7.5-11.1); PLATELET COUNT 300 K/MM3 (134-434); RDW 14.4 % (11.9-15.9); WHITE BLOOD COUNT 5.7 K/mm3 (4.0-10.0)
[2016-07-31] MEDS: RANITIDINE HCL 150 MG TABLET (FP) PO SCH ×2 (10:20→22:36)
[2016-07-31] MEDS: PRENATAL VITAMINS W/ FOLIC ACID TABLET (FP) PO SCH (10:20)
[2016-07-31] MEDS: NICOTINE 14 MG/24 HOURS TOPICAL PATCH TD SCH (10:20)
[2016-07-31 10:33] LABS: ALBUMIN 3.5 g/dl (3.4-5.0); ALK PHOS 107 U/L (45-117); ANION GAP 7 (8-16); BILIRUBIN,TOTAL 0.6 mg/dL (0.2-1.0); CALCIUM 8.8 mg/dL (8.5-10.1); CO2 29 mmol/L (21-32); COCKROFT - GAULT 124.98; CREATININE 0.9 mg/dL (0.7-1.3); SGOT/AST 23 U/L (15-37); SGPT/ALT 35 U/L (12-78); TOT PROT 7.4 g/dl (6.4-8.2)
[2016-07-31 11:09] LABS: GLUCOSE,RANDOM 401 mg/dL (74-106)
[2016-07-31] MEDS ORDERED: INSULIN (NOVOLOG) ASPART 100 UNITS/ML 10ML VIAL ONE ×2 (11:42→17:05)
--- NOTE | 2016-07-31 12:00 | EKG ---
Test Reason : Blood Pressure : / mmHG Vent. Rate : 052 BPM Atrial Rate : 052 BPM P-R Int : 140 ms QRS Dur : 088 ms QT Int : 428 ms P-R-T Axes : 033 056 035 degrees QTc Int : 398 ms SINUS BRADYCARDIA OTHERWISE NORMAL ECG WHEN COMPARED WITH ECG OF 24-MAY-2016 20:50, NO SIGNIFICANT CHANGE WAS FOUND Confirmed by TANIA LAU MD ([id number]) on 07/31/2016 11:59:47 AM Referred By: Confirmed By:TANIA LAU MD
--- NOTE | 2016-07-31 13:26 | PN ---
[facility] CIWA - CIWA Score Nausea/Vomitin-Mild Nausea/No Vomiting Muscle Tremors: 4-Moderate,w/Arms Extend Anxiety: 4-Mod. Anxious/Guarded Agitation: 2 Paroxysmal Sweats: 2 Orientation: 0-Oriented Tacttile Disturbances: 0-None Auditory Disturbances: 2-Mild Harshness/Frighten Visual Disturbances: 3-Moderate Sensitivity Headache: 0-None Present CIWA-Ar Total Score: 18 S COWS - Scale Resting Pulse: 0= [place] 80 or Below Sweatin= Chills/Flushing Restless Observation: 0= Sits Still Pupil Size: 0= Normal to Room Light Bone or Joint Aches: 2= Severe Diffuse Aches Runny Nose/ Eye Tearin= Runny Nose/Eyes GI Upset > 30mins: 0= None Tremor Observation of Outstretched Hands: 2= Slight Tremor Visible Yawning Observation: 1= 1-2x During Session Anxiety or Irritability: 2=Irritable/Anxious Goose Flesh Skin: 3=Piloerection COWS Score: 13 S Progress Note (SOAP) Subjective: Fatigue, Interrupted sleep, Tremors. Objective: PT. A & O X 3. NO ACUTE DISTRESS. PT. DENIES CHEST PAIN. 07/31/16 13:19 Vital Signs Temperature 96.9 F L 07/31/16 09:36 Pulse Rate 56 L 07/31/16 09:36 Respiratory Rate 18 07/31/16 09:36 Blood Pressure 133/80 07/31/16 09:36 O2 Sat by Pulse Oximetry (%) Laboratory Tests 07/30/16 07/30/16 07/30/16 17:11 19:02 20:57 WBC RBC Hgb Hct MCV MCHC RDW Plt Count MPV Sodium Potassium Chloride Carbon Dioxide Anion Gap BUN Creatinine Creat Clearance w eGFR POC Glucometer 353 261 332 Random Glucose Calcium Total Bilirubin AST ALT Alkaline Phosphatase Total Protein Albumin Urine Color Urine Appearance Urine pH Urine Protein Urine Glucose (UA) Urine Ketones Urine Blood Urine Nitrite Urine Bilirubin Urine Urobilinogen Ur Leukocyte Esterase RPR Titer 07/30/16 07/31/16 07/31/16 Unknown 05:58 06:00 WBC 5.7 D RBC 4.32 Hgb 12.8 Hct 38.8 MCV 89.8 MCHC 32.9 RDW 14.4 Plt Count 300 D MPV 8.2 Sodium Potassium Chloride Carbon Dioxide Anion Gap BUN Creatinine Creat Clearance w eGFR POC Glucometer 257 Random Glucose Calcium Total Bilirubin AST ALT Alkaline Phosphatase Total Protein Albumin Urine Color Yellow Urine Appearance Clear Urine pH 6.0 Urine Protein Negative Urine Glucose (UA) 3+ H Urine Ketones Negative Urine Blood Negative Urine Nitrite Negative Urine Bilirubin Negative Urine Urobilinogen Negative Ur Leukocyte Esterase Negative RPR Titer 07/31/16 07/31/16 07/31/16 06:00 06:00 11:18 WBC RBC Hgb Hct MCV MCHC RDW Plt Count MPV Sodium 137 Potassium 4.4 Chloride 101 Carbon Dioxide 29 Anion Gap 7 L BUN 9 D Creatinine 0.9 D Creat Clearance w eGFR > 60 POC Glucometer 263 Random Glucose 401 H* D Calcium 8.8 Total Bilirubin 0.6 AST 23 ALT 35 Alkaline Phosphatase 107 Total Protein 7.4 Albumin 3.5 Urine Color Urine Appearance Urine pH Urine Protein Urine Glucose (UA) Urine Ketones Urine Blood Urine Nitrite Urine Bilirubin Urine Urobilinogen Ur Leukocyte Esterase RPR Titer Nonreactive LABS NOTED. Assessment: 07/31/16 13:22 WITHDRAWAL SYMPTOMS. Plan: CONTINUE DETOX. CONTINUE TO MONITOR BP.
--- NOTE | 2016-07-31 17:03 | CONSULT ---
[facility] Psychiatric Consult - Data Date of interview: 07/31/16 Admission source: [facility] Identifying data: Patient is approached at bedside for psychiatric evaluation.He refuses.Nursing staff is made aware.
[2016-07-31] MEDS: THIAMINE HCL 100 MG TABLET (FP) PO SCH (22:36)
[2016-07-31] MEDS: diphenhydrAMINE HCL 50 MG CAPSULE PO PRN (22:37)
[2016-07-31] MEDS: INSULIN DETEMIR 100 UNITS/ML MDV SQ SCH (22:38)
[2016-08-01] MEDS: chlordiazePOXIDE HCL 25 MG CAPSULE PO SCH ×3 (05:57→17:05)
[2016-08-01] MEDS: INSULIN SLIDING SCALE (NOVOLOG) 1 VIAL SQ SCH ×4 (07:45→22:30)
[2016-08-01] MEDS: metFORMIN HCL 500 MG TABLET (FP) PO SCH ×2 (07:45→17:05)
[2016-08-01] MEDS: NICOTINE 14 MG/24 HOURS TOPICAL PATCH TD SCH (10:39)
[2016-08-01] MEDS: PRENATAL VITAMINS W/ FOLIC ACID TABLET (FP) PO SCH (10:40)
[2016-08-01] MEDS: RANITIDINE HCL 150 MG TABLET (FP) PO SCH ×2 (10:40→22:27)
[2016-08-01] MEDS: METHADONE HCL 5 MG TABLET (FOR DETOX USE ONLY) PO SCH (10:41)
[2016-08-01] MEDS ORDERED: INSULIN (NOVOLOG) ASPART 100 UNITS/ML 10ML VIAL ONE ×3 (11:53→21:01)
--- NOTE | 2016-08-01 12:10 | PN ---
[facility] CIWA - CIWA Score Nausea/Vomitin-No Nausea/No Vomiting Muscle Tremors: 3 Anxiety: 4-Mod. Anxious/Guarded Agitation: 2 Paroxysmal Sweats: 3 Orientation: 0-Oriented Tacttile Disturbances: 2-Mild Itch/Numbness/Burn Auditory Disturbances: 0-None Visual Disturbances: 0-None Headache: 3-Moderate CIWA-Ar Total Score: 17 [facility] COWS - Scale Resting Pulse: 0= [place] 80 or Below Sweatin=Flushed/Facial Moisture Restless Observation: 1= Difficult to Sit Still Pupil Size: 0= Normal to Room Light Bone or Joint Aches: 2= Severe Diffuse Aches Runny Nose/ Eye Tearin= Nasal Congestion GI Upset > 30mins: 0= None Tremor Observation of Outstretched Hands: 2= Slight Tremor Visible Yawning Observation: 1= 1-2x During Session Anxiety or Irritability: 2=Irritable/Anxious Goose Flesh Skin: 3=Piloerection COWS Score: 14 S Progress Note (SOAP) Subjective: Interrupted sleep, Body aches, H/A, Sweating. Objective: PT. A & O X 3, OBSERVED AMBULATING ON UNIT. NO ACUTE DISTRESS. PT. DENIES CHEST PAIN. 08/01/16 12:06 Vital Signs Temperature 98 F 08/01/16 10:09 Pulse Rate 68 08/01/16 10:09 Respiratory Rate 20 08/01/16 10:09 Blood Pressure 138/89 08/01/16 10:09 O2 Sat by Pulse Oximetry (%) Laboratory Tests 07/30/16 07/30/16 07/30/16 17:11 19:02 20:57 WBC RBC Hgb Hct MCV MCHC RDW Plt Count MPV Sodium Potassium Chloride Carbon Dioxide Anion Gap BUN Creatinine Creat Clearance w eGFR POC Glucometer 353 261 332 Random Glucose Calcium Total Bilirubin AST ALT Alkaline Phosphatase Total Protein Albumin Urine Color Urine Appearance Urine pH Ur Specific [place] Urine Protein Urine Glucose (UA) Urine Ketones Urine Blood Urine Nitrite Urine Bilirubin Urine Urobilinogen Ur Leukocyte Esterase RPR Titer 07/30/16 07/31/16 07/31/16 Unknown 05:58 06:00 WBC 5.7 D RBC 4.32 Hgb 12.8 Hct 38.8 MCV 89.8 MCHC 32.9 RDW 14.4 Plt Count 300 D MPV 8.2 Sodium Potassium Chloride Carbon Dioxide Anion Gap BUN Creatinine Creat Clearance w eGFR POC Glucometer 257 Random Glucose Calcium Total Bilirubin AST ALT Alkaline Phosphatase Total Protein Albumin Urine Color Yellow Urine Appearance Clear Urine pH 6.0 Ur Specific [place] 1.010 Urine Protein Negative Urine Glucose (UA) 3+ H Urine Ketones Negative Urine Blood Negative Urine Nitrite Negative Urine Bilirubin Negative Urine Urobilinogen Negative Ur Leukocyte Esterase Negative RPR Titer 07/31/16 07/31/16 07/31/16 06:00 06:00 11:18 WBC RBC Hgb Hct MCV MCHC RDW Plt Count MPV Sodium 137 Potassium 4.4 Chloride 101 Carbon Dioxide 29 Anion Gap 7 L BUN 9 D Creatinine 0.9 D Creat Clearance w eGFR > 60 POC Glucometer 263 Random Glucose 401 H* D Calcium 8.8 Total Bilirubin 0.6 AST 23 ALT 35 Alkaline Phosphatase 107 Total Protein 7.4 Albumin 3.5 Urine Color Urine Appearance Urine pH Ur Specific [place] Urine Protein Urine Glucose (UA) Urine Ketones Urine Blood Urine Nitrite Urine Bilirubin Urine Urobilinogen Ur Leukocyte Esterase RPR Titer Nonreactive 07/31/16 07/31/16 16:30 20:48 WBC RBC Hgb Hct MCV MCHC RDW Plt Count MPV Sodium Potassium Chloride Carbon Dioxide Anion Gap BUN Creatinine Creat Clearance w eGFR POC Glucometer 280 177 Random Glucose Calcium Total Bilirubin AST ALT Alkaline Phosphatase Total Protein Albumin Urine Color Urine Appearance Urine pH Ur Specific [place] Urine Protein Urine Glucose (UA) Urine Ketones Urine Blood Urine Nitrite Urine Bilirubin Urine Urobilinogen Ur Leukocyte Esterase RPR Titer LABS NOTED. Assessment: 08/01/16 12:07 WITHDRAWAL SYMPTOMS. Plan: CONTINUE DETOX. HGB A1C ORDERED. PT. ADVISED TO FOLLOW-UP WITH AGRICULTURAL TECHNICIAN AFTER DISCHARGE FROM DETOX FOR GENERAL MEDICAL ASSESSMENT AND FOR FOLLOW-UP CARE FOR DIABETES.
[2016-08-01] MEDS ORDERED: INSULIN DETEMIR 100 UNITS/ML MDV SQ ONE (21:01)
[2016-08-01] MEDS: chlordiazePOXIDE 5 MG CAPSULE PO SCH (22:27)
[2016-08-01] MEDS: INSULIN DETEMIR 100 UNITS/ML MDV SQ SCH (22:27)
[2016-08-01] MEDS: THIAMINE HCL 100 MG TABLET (FP) PO SCH (22:27)
[2016-08-02] MEDS: chlordiazePOXIDE 5 MG CAPSULE PO SCH ×3 (05:56→16:59)
[2016-08-02] MEDS ORDERED: INSULIN (NOVOLOG) ASPART 100 UNITS/ML 10ML VIAL ONE ×4 (06:34→20:47)
[2016-08-02] MEDS: INSULIN SLIDING SCALE (NOVOLOG) 1 VIAL SQ SCH ×4 (07:00→21:08)
[2016-08-02] MEDS: metFORMIN HCL 500 MG TABLET (FP) PO SCH ×2 (07:00→16:57)
[2016-08-02] MEDS ORDERED: ONDANSETRON *ODT* 4 MG TABLET SL ONE (10:26)
[2016-08-02] MEDS: METHADONE HCL 5 MG TABLET (FOR DETOX USE ONLY) PO SCH (10:26)
[2016-08-02] MEDS ORDERED: ONDANSETRON *ODT* 4 MG TABLET SL PRN (10:27)
[2016-08-02] MEDS: NICOTINE 14 MG/24 HOURS TOPICAL PATCH TD SCH (10:27)
[2016-08-02] MEDS: RANITIDINE HCL 150 MG TABLET (FP) PO SCH ×2 (10:27→21:09)
[2016-08-02] MEDS: PRENATAL VITAMINS W/ FOLIC ACID TABLET (FP) PO SCH (10:27)
--- NOTE | 2016-08-02 12:06 | PN ---
S Progress Note (SOAP) Subjective: Fatigue, Anxious, Sweating. Objective: PT. A & O X 2 (DISORIENTED ABOUT DAY / DATE). PT. OBSERVED AMBULATING ON UNIT. NO ACUTE DISTRESS. PT. DENIES CHEST PAIN. 08/02/16 12:03 Vital Signs Temperature 96.4 F L 08/02/16 10:12 Pulse Rate 78 08/02/16 10:12 Respiratory Rate 18 08/02/16 10:12 Blood Pressure 148/82 08/02/16 10:12 O2 Sat by Pulse Oximetry (%) Laboratory Tests 07/30/16 07/30/16 07/30/16 17:11 19:02 20:57 WBC RBC Hgb Hct MCV MCHC RDW Plt Count MPV Sodium Potassium Chloride Carbon Dioxide Anion Gap BUN Creatinine Creat Clearance w eGFR POC Glucometer 353 261 332 Random Glucose Hemoglobin A1c % Calcium Total Bilirubin AST ALT Alkaline Phosphatase Total Protein Albumin Urine Color Urine Appearance Urine pH Ur Specific [place] Urine Protein Urine Glucose (UA) Urine Ketones Urine Blood Urine Nitrite Urine Bilirubin Urine Urobilinogen Ur Leukocyte Esterase RPR Titer 07/30/16 07/31/16 07/31/16 Unknown 05:58 06:00 WBC 5.7 D RBC 4.32 Hgb 12.8 Hct 38.8 MCV 89.8 MCHC 32.9 RDW 14.4 Plt Count 300 D MPV 8.2 Sodium Potassium Chloride Carbon Dioxide Anion Gap BUN Creatinine Creat Clearance w eGFR POC Glucometer 257 Random Glucose Hemoglobin A1c % Calcium Total Bilirubin AST ALT Alkaline Phosphatase Total Protein Albumin Urine Color Yellow Urine Appearance Clear Urine pH 6.0 Ur Specific [place] 1.010 Urine Protein Negative Urine Glucose (UA) 3+ H Urine Ketones Negative Urine Blood Negative Urine Nitrite Negative Urine Bilirubin Negative Urine Urobilinogen Negative Ur Leukocyte Esterase Negative RPR Titer 07/31/16 07/31/16 07/31/16 06:00 06:00 11:18 WBC RBC Hgb Hct MCV MCHC RDW Plt Count MPV Sodium 137 Potassium 4.4 Chloride 101 Carbon Dioxide 29 Anion Gap 7 L BUN 9 D Creatinine 0.9 D Creat Clearance w eGFR > 60 POC Glucometer 263 Random Glucose 401 H* D Hemoglobin A1c % Calcium 8.8 Total Bilirubin 0.6 AST 23 ALT 35 Alkaline Phosphatase 107 Total Protein 7.4 Albumin 3.5 Urine Color Urine Appearance Urine pH Ur Specific [place] Urine Protein Urine Glucose (UA) Urine Ketones Urine Blood Urine Nitrite Urine Bilirubin Urine Urobilinogen Ur Leukocyte Esterase RPR Titer Nonreactive 07/31/16 07/31/16 08/01/16 16:30 20:48 08:50 WBC RBC Hgb Hct MCV MCHC RDW Plt Count MPV Sodium Potassium Chloride Carbon Dioxide Anion Gap BUN Creatinine Creat Clearance w eGFR POC Glucometer 280 177 Random Glucose Hemoglobin A1c % 9.7 H Calcium Total Bilirubin AST ALT Alkaline Phosphatase Total Protein Albumin Urine Color Urine Appearance Urine pH Ur Specific [place] Urine Protein Urine Glucose (UA) Urine Ketones Urine Blood Urine Nitrite Urine Bilirubin Urine Urobilinogen Ur Leukocyte Esterase RPR Titer 08/01/16 08/01/16 08/01/16 11:47 16:16 20:56 WBC RBC Hgb Hct MCV MCHC RDW Plt Count MPV Sodium Potassium Chloride Carbon Dioxide Anion Gap BUN Creatinine Creat Clearance w eGFR POC Glucometer 269 182 253 Random Glucose Hemoglobin A1c % Calcium Total Bilirubin AST ALT Alkaline Phosphatase Total Protein Albumin Urine Color Urine Appearance Urine pH Ur Specific [place] Urine Protein Urine Glucose (UA) Urine Ketones Urine Blood Urine Nitrite Urine Bilirubin Urine Urobilinogen Ur Leukocyte Esterase RPR Titer 08/02/16 05:56 WBC RBC Hgb Hct MCV MCHC RDW Plt Count MPV Sodium Potassium Chloride Carbon Dioxide Anion Gap BUN Creatinine Creat Clearance w eGFR POC Glucometer 218 Random Glucose Hemoglobin A1c % Calcium Total Bilirubin AST ALT Alkaline Phosphatase Total Protein Albumin Urine Color Urine Appearance Urine pH Ur Specific [place] Urine Protein Urine Glucose (UA) Urine Ketones Urine Blood Urine Nitrite Urine Bilirubin Urine Urobilinogen Ur Leukocyte Esterase RPR Titer LABS NOTED. RESULT OF HGB A1C NOTED. 08/02/16 12:05 Assessment: 08/02/16 12:04 WITHDRAWAL SYMPTOMS. Plan: CONTINUE DETOX. ADVISED PATIENT TO FOLLOW-UP WITH LIP READING TEACHER AFTER DISCHARGE FROM DETOX FOR GENERAL MEDICAL ASSESSMENT AND FOR FOLLOW-UP TREATMENT OF DM.
[2016-08-02] MEDS: INSULIN DETEMIR 100 UNITS/ML MDV SQ SCH (21:07)
[2016-08-02] MEDS: THIAMINE HCL 100 MG TABLET (FP) PO SCH (21:08)
[2016-08-02] MEDS: diphenhydrAMINE HCL 50 MG CAPSULE PO PRN (21:21)
[2016-08-02] MEDS: chlordiazePOXIDE HCL 10 MG CAPSULE PO SCH (22:41)
[2016-08-03] MEDS: chlordiazePOXIDE HCL 10 MG CAPSULE PO SCH ×3 (06:14→16:57)
[2016-08-03] MEDS: metFORMIN HCL 500 MG TABLET (FP) PO SCH ×2 (06:16→16:57)
[2016-08-03] MEDS: INSULIN SLIDING SCALE (NOVOLOG) 1 VIAL SQ SCH ×4 (07:00→22:22)
[2016-08-03] MEDS ORDERED: METHADONE HCL 10 MG TABLET (FOR DETOX USE ONLY) PO SCH (10:00)
[2016-08-03] MEDS: PRENATAL VITAMINS W/ FOLIC ACID TABLET (FP) PO SCH (10:35)
[2016-08-03] MEDS: RANITIDINE HCL 150 MG TABLET (FP) PO SCH ×2 (10:35→22:24)
[2016-08-03] MEDS: NICOTINE 14 MG/24 HOURS TOPICAL PATCH TD SCH (10:36)
[2016-08-03] MEDS ORDERED: INSULIN (NOVOLOG) ASPART 100 UNITS/ML 10ML VIAL ONE ×2 (12:20→16:50)
--- NOTE | 2016-08-03 12:57 | PN ---
[facility] Progress Note (SOAP) Subjective: Fatigue, Anxious. Objective: PT. A & O X 3. NO ACUTE DISTRESS. PT. DENIES CHEST PAIN. 08/03/16 12:55 Vital Signs Temperature 97.0 F L 08/03/16 10:04 Pulse Rate 71 08/03/16 10:04 Respiratory Rate 18 08/03/16 10:04 Blood Pressure 142/90 08/03/16 10:04 O2 Sat by Pulse Oximetry (%) Laboratory Tests 07/30/16 07/30/16 07/30/16 17:11 19:02 20:57 WBC RBC Hgb Hct MCV MCHC RDW Plt Count MPV Sodium Potassium Chloride Carbon Dioxide Anion Gap BUN Creatinine Creat Clearance w eGFR POC Glucometer 353 261 332 Random Glucose Hemoglobin A1c % Calcium Total Bilirubin AST ALT Alkaline Phosphatase Total Protein Albumin Urine Color Urine Appearance Urine pH Ur Specific [place] Urine Protein Urine Glucose (UA) Urine Ketones Urine Blood Urine Nitrite Urine Bilirubin Urine Urobilinogen Ur Leukocyte Esterase RPR Titer 07/30/16 07/31/16 07/31/16 Unknown 05:58 06:00 WBC 5.7 D RBC 4.32 Hgb 12.8 Hct 38.8 MCV 89.8 MCHC 32.9 RDW 14.4 Plt Count 300 D MPV 8.2 Sodium Potassium Chloride Carbon Dioxide Anion Gap BUN Creatinine Creat Clearance w eGFR POC Glucometer 257 Random Glucose Hemoglobin A1c % Calcium Total Bilirubin AST ALT Alkaline Phosphatase Total Protein Albumin Urine Color Yellow Urine Appearance Clear Urine pH 6.0 Ur Specific [place] 1.010 Urine Protein Negative Urine Glucose (UA) 3+ H Urine Ketones Negative Urine Blood Negative Urine Nitrite Negative Urine Bilirubin Negative Urine Urobilinogen Negative Ur Leukocyte Esterase Negative RPR Titer 07/31/16 07/31/16 07/31/16 06:00 06:00 11:18 WBC RBC Hgb Hct MCV MCHC RDW Plt Count MPV Sodium 137 Potassium 4.4 Chloride 101 Carbon Dioxide 29 Anion Gap 7 L BUN 9 D Creatinine 0.9 D Creat Clearance w eGFR > 60 POC Glucometer 263 Random Glucose 401 H* D Hemoglobin A1c % Calcium 8.8 Total Bilirubin 0.6 AST 23 ALT 35 Alkaline Phosphatase 107 Total Protein 7.4 Albumin 3.5 Urine Color Urine Appearance Urine pH Ur Specific [place] Urine Protein Urine Glucose (UA) Urine Ketones Urine Blood Urine Nitrite Urine Bilirubin Urine Urobilinogen Ur Leukocyte Esterase RPR Titer Nonreactive 07/31/16 07/31/16 08/01/16 16:30 20:48 08:50 WBC RBC Hgb Hct MCV MCHC RDW Plt Count MPV Sodium Potassium Chloride Carbon Dioxide Anion Gap BUN Creatinine Creat Clearance w eGFR POC Glucometer 280 177 Random Glucose Hemoglobin A1c % 9.7 H Calcium Total Bilirubin AST ALT Alkaline Phosphatase Total Protein Albumin Urine Color Urine Appearance Urine pH Ur Specific [place] Urine Protein Urine Glucose (UA) Urine Ketones Urine Blood Urine Nitrite Urine Bilirubin Urine Urobilinogen Ur Leukocyte Esterase RPR Titer 08/01/16 08/01/16 08/01/16 11:47 16:16 20:56 WBC RBC Hgb Hct MCV MCHC RDW Plt Count MPV Sodium Potassium Chloride Carbon Dioxide Anion Gap BUN Creatinine Creat Clearance w eGFR POC Glucometer 269 182 253 Random Glucose Hemoglobin A1c % Calcium Total Bilirubin AST ALT Alkaline Phosphatase Total Protein Albumin Urine Color Urine Appearance Urine pH Ur Specific [place] Urine Protein Urine Glucose (UA) Urine Ketones Urine Blood Urine Nitrite Urine Bilirubin Urine Urobilinogen Ur Leukocyte Esterase RPR Titer 08/02/16 08/02/16 08/02/16 05:56 11:33 16:13 WBC RBC Hgb Hct MCV MCHC RDW Plt Count MPV Sodium Potassium Chloride Carbon Dioxide Anion Gap BUN Creatinine Creat Clearance w eGFR POC Glucometer 218 269 229 Random Glucose Hemoglobin A1c % Calcium Total Bilirubin AST ALT Alkaline Phosphatase Total Protein Albumin Urine Color Urine Appearance Urine pH Ur Specific [place] Urine Protein Urine Glucose (UA) Urine Ketones Urine Blood Urine Nitrite Urine Bilirubin Urine Urobilinogen Ur Leukocyte Esterase RPR Titer 08/02/16 08/03/16 08/03/16 20:46 06:13 11:19 WBC RBC Hgb Hct MCV MCHC RDW Plt Count MPV Sodium Potassium Chloride Carbon Dioxide Anion Gap BUN Creatinine Creat Clearance w eGFR POC Glucometer 332 254 216 Random Glucose Hemoglobin A1c % Calcium Total Bilirubin AST ALT Alkaline Phosphatase Total Protein Albumin Urine Color Urine Appearance Urine pH Ur Specific [place] Urine Protein Urine Glucose (UA) Urine Ketones Urine Blood Urine Nitrite Urine Bilirubin Urine Urobilinogen Ur Leukocyte Esterase RPR Titer LABS NOTED. 08/03/16 12:58 08/03/16 13:00 Assessment: 08/03/16 12:56 WITHDRAWAL SYMPTOMS. Plan: CONTINUE DETOX. WILL CONTINUE TO MONITOR BP. ADVISED PATIENT TO FOLLOW-UP WITH REAL ESTATE INVESTOR AFTER DISCHARGE FROM DETOX FOR GENERAL MEDICAL ASSESSMENT AND FOR HISTORY OF DIABETES MELLITUS.
[2016-08-03] MEDS: INSULIN DETEMIR 100 UNITS/ML MDV SQ SCH (22:23)
[2016-08-03] MEDS: diphenhydrAMINE HCL 50 MG CAPSULE PO PRN (22:24)
[2016-08-03] MEDS: THIAMINE HCL 100 MG TABLET (FP) PO SCH (22:24)
[2016-08-04] MEDS ORDERED: METHADONE HCL 5 MG TABLET (FOR DETOX USE ONLY) PO SCH (06:00)
[2016-08-04] MEDS: INSULIN SLIDING SCALE (NOVOLOG) 1 VIAL SQ SCH (06:11)
[2016-08-04] MEDS: metFORMIN HCL 500 MG TABLET (FP) PO SCH (06:11)
[2016-08-04 06:29] VITALS: BP 145/82; PULSE 71; TEMP 97.5
--- NOTE | 2016-08-04 13:34 | DS ---
[facility] Detox Discharge Summary Admission Date: 07/30/16 Discharge Date: 08/04/16 - History Present History: Alcohol Dependence, Cocaine Dependence, Opioid Dependence Additional Comments: ADVISED PATIENT TO FOLLOW-UP WITH RE[facility]ESTATION WORKER AFTER DISCHARGE FROM DETOX FOR GENERAL MEDICAL ASSESSMENT. Pertinent Past History: DM, Hep C, Depression, GERD. - Physical Exam Results Vital Signs: Vital Signs Temperature 97.5 F L 08/04/16 06:28 Pulse Rate 71 08/04/16 06:28 Respiratory Rate 18 08/04/16 06:28 Blood Pressure 145/82 08/04/16 06:28 O2 Sat by Pulse Oximetry (%) Pertinent Admission Physical Exam Findings: WITHDRAWAL SYMPTOMS. Laboratory Tests 07/30/16 07/30/16 07/30/16 17:11 19:02 20:57 WBC RBC Hgb Hct MCV MCHC RDW Plt Count MPV Sodium Potassium Chloride Carbon Dioxide Anion Gap BUN Creatinine Creat Clearance w eGFR POC Glucometer 353 261 332 Random Glucose Hemoglobin A1c % Calcium Total Bilirubin AST ALT Alkaline Phosphatase Total Protein Albumin Urine Color Urine Appearance Urine pH Ur Specific [place] Urine Protein Urine Glucose (UA) Urine Ketones Urine Blood Urine Nitrite Urine Bilirubin Urine Urobilinogen Ur Leukocyte Esterase RPR Titer 07/30/16 07/31/16 07/31/16 Unknown 05:58 06:00 WBC 5.7 D RBC 4.32 Hgb 12.8 Hct 38.8 MCV 89.8 MCHC 32.9 RDW 14.4 Plt Count 300 D MPV 8.2 Sodium Potassium Chloride Carbon Dioxide Anion Gap BUN Creatinine Creat Clearance w eGFR POC Glucometer 257 Random Glucose Hemoglobin A1c % Calcium Total Bilirubin AST ALT Alkaline Phosphatase Total Protein Albumin Urine Color Yellow Urine Appearance Clear Urine pH 6.0 Ur Specific [place] 1.010 Urine Protein Negative Urine Glucose (UA) 3+ H Urine Ketones Negative Urine Blood Negative Urine Nitrite Negative Urine Bilirubin Negative Urine Urobilinogen Negative Ur Leukocyte Esterase Negative RPR Titer 07/31/16 07/31/16 07/31/16 06:00 06:00 11:18 WBC RBC Hgb Hct MCV MCHC RDW Plt Count MPV Sodium 137 Potassium 4.4 Chloride 101 Carbon Dioxide 29 Anion Gap 7 L BUN 9 D Creatinine 0.9 D Creat Clearance w eGFR > 60 POC Glucometer 263 Random Glucose 401 H* D Hemoglobin A1c % Calcium 8.8 Total Bilirubin 0.6 AST 23 ALT 35 Alkaline Phosphatase 107 Total Protein 7.4 Albumin 3.5 Urine Color Urine Appearance Urine pH Ur Specific [place] Urine Protein Urine Glucose (UA) Urine Ketones Urine Blood Urine Nitrite Urine Bilirubin Urine Urobilinogen Ur Leukocyte Esterase RPR Titer Nonreactive 07/31/16 07/31/16 08/01/16 16:30 20:48 08:50 WBC RBC Hgb Hct MCV MCHC RDW Plt Count MPV Sodium Potassium Chloride Carbon Dioxide Anion Gap BUN Creatinine Creat Clearance w eGFR POC Glucometer 280 177 Random Glucose Hemoglobin A1c % 9.7 H Calcium Total Bilirubin AST ALT Alkaline Phosphatase Total Protein Albumin Urine Color Urine Appearance Urine pH Ur Specific [place] Urine Protein Urine Glucose (UA) Urine Ketones Urine Blood Urine Nitrite Urine Bilirubin Urine Urobilinogen Ur Leukocyte Esterase RPR Titer 08/01/16 08/01/16 08/01/16 11:47 16:16 20:56 WBC RBC Hgb Hct MCV MCHC RDW Plt Count MPV Sodium Potassium Chloride Carbon Dioxide Anion Gap BUN Creatinine Creat Clearance w eGFR POC Glucometer 269 182 253 Random Glucose Hemoglobin A1c % Calcium Total Bilirubin AST ALT Alkaline Phosphatase Total Protein Albumin Urine Color Urine Appearance Urine pH Ur Specific [place] Urine Protein Urine Glucose (UA) Urine Ketones Urine Blood Urine Nitrite Urine Bilirubin Urine Urobilinogen Ur Leukocyte Esterase RPR Titer 08/02/16 08/02/16 08/02/16 05:56 11:33 16:13 WBC RBC Hgb Hct MCV MCHC RDW Plt Count MPV Sodium Potassium Chloride Carbon Dioxide Anion Gap BUN Creatinine Creat Clearance w eGFR POC Glucometer 218 269 229 Random Glucose Hemoglobin A1c % Calcium Total Bilirubin AST ALT Alkaline Phosphatase Total Protein Albumin Urine Color Urine Appearance Urine pH Ur Specific [place] Urine Protein Urine Glucose (UA) Urine Ketones Urine Blood Urine Nitrite Urine Bilirubin Urine Urobilinogen Ur Leukocyte Esterase RPR Titer 08/02/16 08/03/16 08/03/16 20:46 06:13 11:19 WBC RBC Hgb Hct MCV MCHC RDW Plt Count MPV Sodium Potassium Chloride Carbon Dioxide Anion Gap BUN Creatinine Creat Clearance w eGFR POC Glucometer 332 254 216 Random Glucose Hemoglobin A1c % Calcium Total Bilirubin AST ALT Alkaline Phosphatase Total Protein Albumin Urine Color Urine Appearance Urine pH Ur Specific [place] Urine Protein Urine Glucose (UA) Urine Ketones Urine Blood Urine Nitrite Urine Bilirubin Urine Urobilinogen Ur Leukocyte Esterase RPR Titer 08/03/16 08/04/16 15:53 06:10 WBC RBC Hgb Hct MCV MCHC RDW Plt Count MPV Sodium Potassium Chloride Carbon Dioxide Anion Gap BUN Creatinine Creat Clearance w eGFR POC Glucometer 307 171 Random Glucose Hemoglobin A1c % Calcium Total Bilirubin AST ALT Alkaline Phosphatase Total Protein Albumin Urine Color Urine Appearance Urine pH Ur Specific [place] Urine Protein Urine Glucose (UA) Urine Ketones Urine Blood Urine Nitrite Urine Bilirubin Urine Urobilinogen Ur Leukocyte Esterase RPR Titer LABS NOTED. - Treatment Hospital Course: Detox Protocol Followed, Detoxed Safely, Responded well, Discharged Condition Good Patient has Accepted a Rehab Referral to: PT. ELECTING TO GO HOME. 12-STEP/AA/ NA OUTPATIENT PROGRAMS RECOMMENDED. - Medication Discharge Medications: Ambulatory Orders Insulin Glargine,Hum.rec.anlog [Lantus Solostar PEN -] 20 units SQ HS 05/23/16 Metformin HCl [Glucophage -] 500 mg PO BID 05/23/16 - Diagnosis (1) Alcohol dependence with uncomplicated withdrawal Status: Acute (2) Nicotine dependence Status: Chronic Qualifiers: Nicotine product type: cigarettes Substance use status: in withdrawal Qualified Code(s): F17.213 - Nicotine dependence, cigarettes, with withdrawal (3) Opioid dependence with withdrawal Status: Acute (4) GERD (gastroesophageal reflux disease) Status: Chronic Qualifiers: Esophagitis presence: without esophagitis Qualified Code(s): K21.9 - Gastro-esophageal reflux disease without esophagitis (5) Hepatitis C Status: Chronic Qualifiers: Viral hepatitis chronicity: unspecified Hepatic coma status: without hepatic coma Qualified Code(s): B19.20 - Unspecified viral hepatitis C without hepatic coma (6) Cocaine dependence, uncomplicated Status: Acute (7) Diabetes mellitus, type II, insulin dependent Status: Chronic - AMA Did Patient Leave Against Medical Advice: No
== END 2016-08-04 09:00 | disposition home or self-care (01) | DRG 773 ==
LOC: YASAS 12:29 → Y3N 18:17
PROVIDERS: ADMIT Internal Medicine; ATTEND Internal Medicine
PROC: HZ2ZZZZ Detoxification Services for Substance Abuse Treatment (ICD-10-PCS; principal; 2016-07-30)
DX: F11.23 Opioid dependence with withdrawal (principal); F10.230 Alcohol dependence with withdrawal, uncomplicated; F14.20 Cocaine dependence, uncomplicated; F17.213 Nicotine dependence, cigarettes, with withdrawal; F34.1 Dysthymic disorder; K21.9 Gastro-esophageal reflux disease without esophagitis; B19.20 Unspecified viral hepatitis C without hepatic coma; E11.9 Type 2 diabetes mellitus without complications; Z79.4 Long term (current) use of insulin; Z79.84 Long term (current) use of oral hypoglycemic drugs
CPT/HCPCS: 36415; 80053; 81003; 83036; 85027; 86593; 93005; 93010

== ENCOUNTER 2016-10-04 14:57 | Inpatient (IN) | payer OTHER ==
[2016-10-04 15:32] VITALS: BMI 26.2
--- NOTE | 2016-10-04 16:47 | HP ---
CIWA Score - CIWA Score Nausea/Vomitin Muscle Tremors: 3 Anxiety: 3 Agitation: 3 Paroxysmal Sweats: 2 Orientation: 0-Oriented Tacttile Disturbances: 2-Mild Itch/Numbness/Burn Auditory Disturbances: 2-Mild Harshness/Frighten Visual Disturbances: 2-Mild Sensitivity Headache: 2-Mild CIWA-Ar Total Score: 22 Admission ROS BHS - HPI Chief Complaint: i am here to stop drinking alcohol,cocaine dependence,her0in dependence,mmtp 30 mgs/day,last medicated today,last treatment [facility] 07/30/16 to 08/04/16 nicotine dependence type 2 dm on medications non compliance no medication for 1 week longest of sobriety 10 years Allergies/Adverse Reactions: Allergies Allergy/AdvReac Type Severity Reaction Status Date / Time No Known Allergies Allergy Verified 10/04/16 16:13 History of Present Illness: this 45 years old male with alcohol and cocaine dependence,also using daysi=oin, mmtp 30 mgs/day,last medicated today, requesting detox as mentioned in chief complaint Exam Limitations: No Limitations - Ebola screening Have you traveled outside of the country in the last 21 days: No Have you had contact with anyone from an Ebola affected area: No Have you been sick,other than usual withdrawal symptoms: No - Review of Systems Constitutional: Chills, Diaphoresis, Loss of Appetite, Malaise, Night Sweats, Changes in sleep, Weakness, Unintentional Wgt. Loss EENT: reports: Tearing, Nose Congestion Respiratory: reports: No Symptoms reported Cardiac: reports: No Symptoms Reported GI: reports: Diarrhea, Nausea, Poor Appetite, Vomiting : reports: No Symptoms Reported Musculoskeletal: reports: Back Pain, Muscle Pain Integumentary: reports: Dryness Neuro: reports: Headache, Tremors Endocrine: reports: No Symptoms Reported Hematology: reports: No Symptoms Reported Psychiatric: reports: No Sypmtoms Reported, Judgement Intact, Mood/Affect Appropiate, Orientated x3 Patient History - Patient Medical History Hx Anemia: No Hx Asthma: No Hx Chronic Obstructive Pulmonary Disease (COPD): No Hx Cancer: No Hx Cardiac Disorders: No Hx Congestive Heart Failure: No Hx Hypertension: No Hx Hypercholesterolemia: No Hx Pacemaker: No HX Cerebrovascular Accident: No Hx Seizures: No Hx Dementia: No Hx Diabetes: Yes (IDDM on metfomin 500 mgs po bid,lantus insulin 30 units hs) Hx Gastrointestinal Disorders: No Hx Liver Disease: No Hx Genitourinary Disorders: No Hx Sexually Transmitted Disorders: No Hx Renal Disease (ESRD): No Hx Thyroid Disease: No Hx Human Immunodeficiency Virus (HIV): No (NEGATIVE HX last 08/11) Hx Hepatitis C: Yes (UNFINISHED TREATMENT YEARS AGO. ) Hx Depression: No Hx Suicide Attempt: No Hx Bipolar Disorder: No Hx Schizophrenia: No Other Medical History: no suicidal,no homicidal - Patient Surgical History Past Surgical History: Yes Hx Neurologic Surgery: No Hx Cataract Extraction: No Hx Cardiac Surgery: No Hx Lung Surgery: No Hx Breast Surgery: No Hx Breast Biopsy: No Hx Abdominal Surgery: No Hx Appendectomy: No Hx Cholecystectomy: No Hx Genitourinary Surgery: No Hx Section: No Hx Orthopedic Surgery: No (right facial fx in may) Other Surgical History: right mandible 04/2016 Anesthesia Reaction: No - PPD History Previous Implant?: Yes Implanted On Prior [facility] Admission?: Yes Date: 01/29/16 Results: 0 mm PPD to be Administered?: No - Smoking Cessation Smoking history: Current every day smoker Have you smoked in the past 12 months: Yes Aproximately how many cigarettes per day: 10 Cigars Per Day: 0 Hx Chewing Tobacco Use: No Initiated information on smoking cessation: Yes 'Breaking Loose' booklet given: 10/04/16 - Substance & Tx. History Hx Alcohol Use: Yes Substance Use Type: Alcohol, Cocaine - Substances Abused Cocaine Route: Injection Frequency: Daily Amount used: 1 gm. Age of first use: 16 Date of Last Use: 10/04/16 Heroin Route: Injection Frequency: Daily Amount used: 10 bags Age of first use: 16 Date of Last Use: 10/04/16 Alcohol-beer Route: Oral Frequency: Daily Amount used: 6-7 (16 oz.) Age of first use: 45 Date of Last Use: 10/04/16 Family Disease History - Family Disease History Family Disease History: Diabetes: Brother, Heart Disease: Mother, Other: Father ( ) Admission Physical Exam BHS - Vital Signs Vital Signs: Vital Signs - 24 hr 10/04/16 15:31 Temperature 97 F L Pulse Rate 71 Respiratory 20 Rate Blood Pressure 117/83 - Physical General Appearance: Yes: Moderate Distress, Tremorous, Irritable, Sweating, Anxious HEENTM: Yes: Normal ENT Inspection, ANURAG, Pharynx Normal, Other (fx of right facial bone surgery in june 2016) Respiratory: Yes: Lungs Clear, Normal Breath Sounds, No Respiratory Distress Neck: Yes: Within Normal Limits, Supple, Trachea in good position Breast: Yes: Within Normal Limits Cardiology: Yes: Within Normal Limits, Regular Rhythm, Regular Rate, S1, S2 Abdominal: Yes: Normal Bowel Sounds, Non Tender, Flat, Soft Genitourinary: Yes: Within Normal Limits Back: Yes: Muscle Spasm Musculoskeletal: Yes: Back pain, Muscle Pain Extremities: Yes: Normal Range of Motion, Tremors Neurological: Yes: can dryer II-XII NML intact, Fully Oriented, Alert, Motor Strength 5/5 Integumentary: Yes: Dry Lymphatic: Yes: Within Normal Limits - Diagnostic (1) Alcohol dependence with uncomplicated withdrawal Current Visit: No Status: Acute (2) Cocaine dependence, uncomplicated Current Visit: No Status: Acute (3) Opioid dependence Current Visit: No Status: Acute (4) Hepatitis C Current Visit: No Status: Chronic Qualifiers: Viral hepatitis chronicity: unspecified Hepatic coma status: without hepatic coma Qualified Code(s): B19.20 - Unspecified viral hepatitis C without hepatic coma (5) Insulin dependent diabetes mellitus Current Visit: No Status: Chronic (6) Nicotine dependence Current Visit: No Status: Chronic Qualifiers: Nicotine product type: cigarettes Substance use status: in withdrawal Qualified Code(s): F17.213 - Nicotine dependence, cigarettes, with withdrawal (7) Zygomatic fracture Current Visit: Yes Status: Acute (8) Methadone maintenance therapy patient Current Visit: Yes Status: Acute Cleared for Admission [facility] - Detox or Rehab [facility] Level of Care: Medically Managed Detox Regimen/Protocol: Librium [facility] Breath Alcohol Content Breath Alcohol Content: 0 Urine Drug Screen - Results Drug Screen Negative: No Urine Drug Screen Results: RIANA-Cocaine, OPI-Opiates, MTD-Methadone
[2016-10-04] MEDS ORDERED: LOPERAMIDE HCL 2 MG CAPSULE PO PRN (17:05)
[2016-10-04] MEDS ORDERED: IBUPROFEN 400 MG TABLET (FP) PO PRN (17:05)
[2016-10-04] MEDS ORDERED: MENTHOL/PHENOL 1 EACH UD MM PRN (17:05)
[2016-10-04] MEDS ORDERED: NICOTINE POLACRILEX 2 MG GUM BC PRN (17:05)
[2016-10-04] MEDS ORDERED: MAGNESIUM HYDROX 2400MG/30ML ORAL SUSPENSION 30 ML CUP PO PRN (17:05)
[2016-10-04] MEDS ORDERED: MAG HYDROX/AL HYDROX/SIMETH 30 ML UNIT-DOSE CUP PO PRN (17:05)
[2016-10-04] MEDS ORDERED: guaiFENesin/D-METHORPHAN HB 10 ML UNIT-DOSE CUPS PO PRN (17:05)
[2016-10-04] MEDS ORDERED: ACETAMINOPHEN 325 MG TABLET (FP) PO PRN (17:05)
[2016-10-04] MEDS ORDERED: P-EPHED 60MG/TRIPROLIDI 2.5MG TABLET PO PRN (17:05)
[2016-10-04] MEDS ORDERED: chlordiazePOXIDE HCL 25 MG CAPSULE PO PRN (17:05)
[2016-10-04] MEDS ORDERED: MAGNESIUM CITRATE 300 ML BOTTLE PO PRN (17:05)
[2016-10-04] MEDS ORDERED: hydrOXYzine PAMOATE 25 MG CAPSULE (FP) PO PRN (17:05)
[2016-10-04] MEDS: metFORMIN HCL 500 MG TABLET (FP) PO SCH (17:44)
[2016-10-04] MEDS ORDERED: chlordiazePOXIDE HCL 25 MG CAPSULE PO ONE (18:00)
[2016-10-04] MEDS ORDERED: INSULIN (NOVOLOG) ASPART 100 UNITS/ML 10ML VIAL ONE (22:02)
[2016-10-04] MEDS: chlordiazePOXIDE HCL 25 MG CAPSULE PO SCH (22:19)
[2016-10-04] MEDS: THIAMINE HCL 100 MG TABLET (FP) PO SCH (22:19)
[2016-10-04] MEDS: INSULIN DETEMIR 100 UNITS/ML MDV SQ SCH (22:19)
[2016-10-04] MEDS: INSULIN (NOVOLOG) ASPART 100 UNITS/ML 10ML VIAL SQ SCH (22:20)
[2016-10-04 22:26] LABS: URINE APPEARANCE CLEAR; URINE BILIRUBIN NEGATIVE (NEGATIVE); URINE BLOOD NEGATIVE (NEGATIVE); URINE COLOR YELLOW; URINE GLUCOSE (UA) 3+ (NEGATIVE); URINE KETONE TRACE (NEGATIVE); URINE LEUK ESTERASE NEGATIVE (NEGATIVE); URINE NITRITE NEGATIVE (NEGATIVE); URINE PROTEIN NEGATIVE (NEGATIVE); URINE UROBILINOGEN NEGATIVE mg/dL (0.2-1.0)
[2016-10-05] MEDS: chlordiazePOXIDE HCL 25 MG CAPSULE PO SCH ×4 (06:04→22:05)
[2016-10-05] MEDS: metFORMIN HCL 500 MG TABLET (FP) PO SCH ×2 (07:10→18:08)
[2016-10-05] MEDS: INSULIN (NOVOLOG) ASPART 100 UNITS/ML 10ML VIAL SQ SCH ×3 (07:11→18:10)
--- NOTE | 2016-10-05 09:37 | EKG ---
Test Reason : Blood Pressure : / mmHG Vent. Rate : 062 BPM Atrial Rate : 062 BPM P-R Int : 162 ms QRS Dur : 090 ms QT Int : 410 ms P-R-T Axes : 063 043 030 degrees QTc Int : 416 ms NORMAL SINUS RHYTHM NORMAL ECG WHEN COMPARED WITH ECG OF 30-JUL-2016 18:08, NO SIGNIFICANT CHANGE WAS FOUND Confirmed by LENA GARCIA MD ([id number]) on 10/05/2016 9:37:20 AM Referred By: Confirmed By:LENA GARCIA MD
[2016-10-05 10:06] LABS: ALBUMIN 3.2 g/dl (3.4-5.0); ANION GAP 7 (8-16); CALCIUM 9.2 mg/dL (8.5-10.1); CO2 30 mmol/L (21-32); GLUCOSE,RANDOM 100 mg/dL (74-106)
[2016-10-05 10:10] LABS: ALK PHOS 147 U/L (45-117); BILIRUBIN,TOTAL 0.4 mg/dL (0.2-1.0); CREATININE 0.6 mg/dL (0.7-1.3); SGOT/AST 17 U/L (15-37); SGPT/ALT 41 U/L (12-78); TOT PROT 6.8 g/dl (6.4-8.2)
[2016-10-05 10:11] LABS: MCH 29.4 pg (25.7-33.7); MCHC 33.3 g/dl (32.0-35.9); MEAN CELL VOLUME 88.4 fl (80-96); MEAN PLT VOLUME 7.3 fl (7.5-11.1); PLATELET COUNT 353 K/MM3 (134-434); RDW 14.1 % (11.9-15.9)
[2016-10-05] MEDS: METHADONE HCL 10 MG TABLET PO SCH (10:25)
[2016-10-05] MEDS: PRENATAL VITAMINS W/ FOLIC ACID TABLET (FP) PO SCH (10:25)
[2016-10-05] MEDS ORDERED: INSULIN (NOVOLOG) ASPART 100 UNITS/ML 10ML VIAL ONE ×2 (11:39→17:51)
--- NOTE | 2016-10-05 12:09 | PN ---
S CIWA - CIWA Score Nausea/Vomitin Muscle Tremors: 3 Anxiety: 3 Agitation: 2 Paroxysmal Sweats: 1-Minimal Palms Moist Orientation: 0-Oriented Tacttile Disturbances: 1-Very Mild Itch/Numbness Auditory Disturbances: 1-Very Mild Visual Disturbances: 0-None Headache: 2-Mild CIWA-Ar Total Score: 16 S Progress Note (SOAP) Subjective: alert,anxious,interrupted sleep,tremor,pain in body,back Objective: 10/05/16 12:05 Vital Signs Temperature 98.1 F 10/05/16 10:16 Pulse Rate 62 10/05/16 10:16 Respiratory Rate 18 10/05/16 10:16 Blood Pressure 150/88 10/05/16 10:16 O2 Sat by Pulse Oximetry (%) ekg nsr 62/min Laboratory Last Values WBC 7.0 K/mm3 (4.0-10.0) 10/05/16 07:00 RBC 4.09 M/mm3 (4.00-5.60) 10/05/16 07:00 Hgb 12.0 GM/dL (11.7-16.9) 10/05/16 07:00 Hct 36.2 % (35.4-49) 10/05/16 07:00 MCV 88.4 fl (80-96) 10/05/16 07:00 MCH 29.4 pg (25.7-33.7) 10/05/16 07:00 MCHC 33.3 g/dl (32.0-35.9) 10/05/16 07:00 RDW 14.1 % (11.9-15.9) 10/05/16 07:00 Plt Count 353 K/MM3 (134-434) 10/05/16 07:00 MPV 7.3 fl (7.5-11.1) L D 10/05/16 07:00 Sodium 142 mmol/L (136-145) 10/05/16 07:00 Potassium 3.8 mmol/L (3.5-5.1) 10/05/16 07:00 Chloride 105 mmol/L (98-107) 10/05/16 07:00 Carbon Dioxide 30 mmol/L (21-32) 10/05/16 07:00 Anion Gap 7 (8-16) L 10/05/16 07:00 BUN 12 mg/dL (7-18) D 10/05/16 07:00 Creatinine 0.6 mg/dL (0.7-1.3) L D 10/05/16 07:00 Creat Clearance w eGFR > 60 (>60) 10/05/16 07:00 POC Glucometer 270 UNITS (()) 10/05/16 11:14 Random Glucose 100 mg/dL (74-106) D 10/05/16 07:00 Calcium 9.2 mg/dL (8.5-10.1) 10/05/16 07:00 Total Bilirubin 0.4 mg/dL (0.2-1.0) D 10/05/16 07:00 AST 17 U/L (15-37) D 10/05/16 07:00 ALT 41 U/L (12-78) 10/05/16 07:00 Alkaline Phosphatase 147 U/L (45-117) H D 10/05/16 07:00 Total Protein 6.8 g/dl (6.4-8.2) 10/05/16 07:00 Albumin 3.2 g/dl (3.4-5.0) L 10/05/16 07:00 Urine Color Yellow 10/04/16 17:34 Urine Appearance Clear 10/04/16 17:34 Urine pH 5.0 (5.0-8.0) 10/04/16 17:34 Urine Protein Negative (NEGATIVE) 10/04/16 17:34 Urine Glucose (UA) 3+ (NEGATIVE) H 10/04/16 17:34 Urine Ketones Trace (NEGATIVE) H 10/04/16 17:34 Urine Blood Negative (NEGATIVE) 10/04/16 17:34 Urine Nitrite Negative (NEGATIVE) 10/04/16 17:34 Urine Bilirubin Negative (NEGATIVE) 10/04/16 17:34 Urine Urobilinogen Negative mg/dL (0.2-1.0) 10/04/16 17:34 Ur Leukocyte Esterase Negative (NEGATIVE) 10/04/16 17:34 Assessment: 10/05/16 12:07 withdrawal symptom Plan: continue detox,bgm monitoring with insulin coverage
[2016-10-05] MEDS ORDERED: IBUPROFEN 600 MG TABLET (FP) PO PRN (12:25)
--- NOTE | 2016-10-05 12:25 | PN ---
MATT Progress Note Note: addendum patient has deformity of left index stated seen and treated at [facility] on sat sat09/29/16 has appointment at [facility] on sat10/12/16
[2016-10-05] MEDS: diphenhydrAMINE HCL 50 MG CAPSULE PO PRN (21:37)
[2016-10-05] MEDS: INSULIN DETEMIR 100 UNITS/ML MDV SQ SCH (21:37)
[2016-10-05] MEDS: THIAMINE HCL 100 MG TABLET (FP) PO SCH (21:37)
[2016-10-06] MEDS: METHADONE HCL 10 MG TABLET PO SCH (06:19)
[2016-10-06] MEDS: chlordiazePOXIDE HCL 25 MG CAPSULE PO SCH ×3 (06:19→17:43)
[2016-10-06] MEDS: metFORMIN HCL 500 MG TABLET (FP) PO SCH ×2 (06:27→17:42)
[2016-10-06] MEDS: INSULIN (NOVOLOG) ASPART 100 UNITS/ML 10ML VIAL SQ SCH ×2 (06:30→17:44)
--- NOTE | 2016-10-06 09:13 | PN ---
[facility] CIWA - CIWA Score Nausea/Vomitin-Mild Nausea/No Vomiting Muscle Tremors: 3 Anxiety: 4-Mod. Anxious/Guarded Agitation: 4-Moderately Restless Paroxysmal Sweats: 3 Orientation: 0-Oriented Tacttile Disturbances: 2-Mild Itch/Numbness/Burn Auditory Disturbances: 0-None Visual Disturbances: 0-None Headache: 0-None Present CIWA-Ar Total Score: 17 BHS Progress Note (SOAP) Subjective: Anxiety,tremors,sweating,interrupted sleep,restless,pain left index Objective: 10/06/16 09:12 Vital Signs - 8 hr 10/06/16 10/06/16 03:30 06:00 Temperature 97.7 F Pulse Rate 53 L Respiratory 18 18 Rate Blood Pressure 117/64 Laboratory Last Values WBC 7.0 K/mm3 (4.0-10.0) 10/05/16 07:00 RBC 4.09 M/mm3 (4.00-5.60) 10/05/16 07:00 Hgb 12.0 GM/dL (11.7-16.9) 10/05/16 07:00 Hct 36.2 % (35.4-49) 10/05/16 07:00 MCV 88.4 fl (80-96) 10/05/16 07:00 MCH 29.4 pg (25.7-33.7) 10/05/16 07:00 MCHC 33.3 g/dl (32.0-35.9) 10/05/16 07:00 RDW 14.1 % (11.9-15.9) 10/05/16 07:00 Plt Count 353 K/MM3 (134-434) 10/05/16 07:00 MPV 7.3 fl (7.5-11.1) L D 10/05/16 07:00 Sodium 142 mmol/L (136-145) 10/05/16 07:00 Potassium 3.8 mmol/L (3.5-5.1) 10/05/16 07:00 Chloride 105 mmol/L (98-107) 10/05/16 07:00 Carbon Dioxide 30 mmol/L (21-32) 10/05/16 07:00 Anion Gap 7 (8-16) L 10/05/16 07:00 BUN 12 mg/dL (7-18) D 10/05/16 07:00 Creatinine 0.6 mg/dL (0.7-1.3) L D 10/05/16 07:00 Creat Clearance w eGFR > 60 (>60) 10/05/16 07:00 POC Glucometer 158 UNITS (()) 10/06/16 06:26 Random Glucose 100 mg/dL (74-106) D 10/05/16 07:00 Calcium 9.2 mg/dL (8.5-10.1) 10/05/16 07:00 Total Bilirubin 0.4 mg/dL (0.2-1.0) D 10/05/16 07:00 AST 17 U/L (15-37) D 10/05/16 07:00 ALT 41 U/L (12-78) 10/05/16 07:00 Alkaline Phosphatase 147 U/L (45-117) H D 10/05/16 07:00 Total Protein 6.8 g/dl (6.4-8.2) 10/05/16 07:00 Albumin 3.2 g/dl (3.4-5.0) L 10/05/16 07:00 Urine Color Yellow 10/04/16 17:34 Urine Appearance Clear 10/04/16 17:34 Urine pH 5.0 (5.0-8.0) 10/04/16 17:34 Ur Specific [place] 1.020 (1.005-1.025) 10/04/16 17:34 Urine Protein Negative (NEGATIVE) 10/04/16 17:34 Urine Glucose (UA) 3+ (NEGATIVE) H 10/04/16 17:34 Urine Ketones Trace (NEGATIVE) H 10/04/16 17:34 Urine Blood Negative (NEGATIVE) 10/04/16 17:34 Urine Nitrite Negative (NEGATIVE) 10/04/16 17:34 Urine Bilirubin Negative (NEGATIVE) 10/04/16 17:34 Urine Urobilinogen Negative mg/dL (0.2-1.0) 10/04/16 17:34 Ur Leukocyte Esterase Negative (NEGATIVE) 10/04/16 17:34 RPR Titer Nonreactive (NONREACTIVE) 10/05/16 07:00 labs noted Assessment: 10/06/16 09:12 Withdrawal sx. Plan: Continue detox
[2016-10-06] MEDS: PRENATAL VITAMINS W/ FOLIC ACID TABLET (FP) PO SCH (10:40)
[2016-10-06] MEDS: IBUPROFEN 400 MG TABLET (FP) PO PRN ×2 (10:43→22:30)
[2016-10-06] MEDS ORDERED: INSULIN (NOVOLOG) ASPART 100 UNITS/ML 10ML VIAL ONE (17:24)
[2016-10-06] MEDS: chlordiazePOXIDE 5 MG CAPSULE PO SCH (22:29)
[2016-10-06] MEDS: THIAMINE HCL 100 MG TABLET (FP) PO SCH (22:29)
[2016-10-06] MEDS: diphenhydrAMINE HCL 50 MG CAPSULE PO PRN (22:29)
[2016-10-06] MEDS: INSULIN DETEMIR 100 UNITS/ML MDV SQ SCH (22:32)
[2016-10-07] MEDS: metFORMIN HCL 500 MG TABLET (FP) PO SCH ×2 (06:27→18:36)
[2016-10-07] MEDS: chlordiazePOXIDE 5 MG CAPSULE PO SCH ×3 (06:27→18:37)
[2016-10-07] MEDS: METHADONE HCL 10 MG TABLET PO SCH (06:28)
[2016-10-07] MEDS: INSULIN (NOVOLOG) ASPART 100 UNITS/ML 10ML VIAL SQ SCH ×2 (06:31→18:37)
[2016-10-07] MEDS: PRENATAL VITAMINS W/ FOLIC ACID TABLET (FP) PO SCH (10:54)
--- NOTE | 2016-10-07 15:53 | PN ---
BHS Progress Note (SOAP) Subjective: Sweating,interrupted sleep,restless Objective: 10/07/16 15:50 Vital Signs - 8 hr 10/07/16 10:00 Temperature 98.8 F Pulse Rate 70 Respiratory 20 Rate Blood Pressure 148/91 Laboratory Last Values WBC 7.0 K/mm3 (4.0-10.0) 10/05/16 07:00 RBC 4.09 M/mm3 (4.00-5.60) 10/05/16 07:00 Hgb 12.0 GM/dL (11.7-16.9) 10/05/16 07:00 Hct 36.2 % (35.4-49) 10/05/16 07:00 MCV 88.4 fl (80-96) 10/05/16 07:00 MCH 29.4 pg (25.7-33.7) 10/05/16 07:00 MCHC 33.3 g/dl (32.0-35.9) 10/05/16 07:00 RDW 14.1 % (11.9-15.9) 10/05/16 07:00 Plt Count 353 K/MM3 (134-434) 10/05/16 07:00 MPV 7.3 fl (7.5-11.1) L D 10/05/16 07:00 Sodium 142 mmol/L (136-145) 10/05/16 07:00 Potassium 3.8 mmol/L (3.5-5.1) 10/05/16 07:00 Chloride 105 mmol/L (98-107) 10/05/16 07:00 Carbon Dioxide 30 mmol/L (21-32) 10/05/16 07:00 Anion Gap 7 (8-16) L 10/05/16 07:00 BUN 12 mg/dL (7-18) D 10/05/16 07:00 Creatinine 0.6 mg/dL (0.7-1.3) L D 10/05/16 07:00 Creat Clearance w eGFR > 60 (>60) 10/05/16 07:00 POC Glucometer 221 UNITS (()) 10/07/16 05:11 Random Glucose 100 mg/dL (74-106) D 10/05/16 07:00 Calcium 9.2 mg/dL (8.5-10.1) 10/05/16 07:00 Total Bilirubin 0.4 mg/dL (0.2-1.0) D 10/05/16 07:00 AST 17 U/L (15-37) D 10/05/16 07:00 ALT 41 U/L (12-78) 10/05/16 07:00 Alkaline Phosphatase 147 U/L (45-117) H D 10/05/16 07:00 Total Protein 6.8 g/dl (6.4-8.2) 10/05/16 07:00 Albumin 3.2 g/dl (3.4-5.0) L 10/05/16 07:00 Urine Color Yellow 10/04/16 17:34 Urine Appearance Clear 10/04/16 17:34 Urine pH 5.0 (5.0-8.0) 10/04/16 17:34 Ur Specific [place] 1.020 (1.005-1.025) 10/04/16 17:34 Urine Protein Negative (NEGATIVE) 10/04/16 17:34 Urine Glucose (UA) 3+ (NEGATIVE) H 10/04/16 17:34 Urine Ketones Trace (NEGATIVE) H 10/04/16 17:34 Urine Blood Negative (NEGATIVE) 10/04/16 17:34 Urine Nitrite Negative (NEGATIVE) 10/04/16 17:34 Urine Bilirubin Negative (NEGATIVE) 10/04/16 17:34 Urine Urobilinogen Negative mg/dL (0.2-1.0) 10/04/16 17:34 Ur Leukocyte Esterase Negative (NEGATIVE) 10/04/16 17:34 RPR Titer Nonreactive (NONREACTIVE) 10/05/16 07:00 labs noted Assessment: 10/07/16 15:52 Withdrawal sx. Plan: Continue detox
[2016-10-07] MEDS ORDERED: INSULIN (NOVOLOG) ASPART 100 UNITS/ML 10ML VIAL ONE (17:23)
[2016-10-07] MEDS: diphenhydrAMINE HCL 50 MG CAPSULE PO PRN (22:28)
[2016-10-07] MEDS: THIAMINE HCL 100 MG TABLET (FP) PO SCH (22:28)
[2016-10-07] MEDS: chlordiazePOXIDE HCL 10 MG CAPSULE PO SCH (22:28)
[2016-10-07] MEDS: INSULIN DETEMIR 100 UNITS/ML MDV SQ SCH (22:28)
[2016-10-07] MEDS: IBUPROFEN 400 MG TABLET (FP) PO PRN (22:29)
[2016-10-08] MEDS: chlordiazePOXIDE HCL 10 MG CAPSULE PO SCH ×2 (05:20→11:37)
[2016-10-08] MEDS: metFORMIN HCL 500 MG TABLET (FP) PO SCH (07:50)
[2016-10-08] MEDS: METHADONE HCL 10 MG TABLET PO SCH (07:50)
[2016-10-08] MEDS ORDERED: INSULIN (NOVOLOG) ASPART 100 UNITS/ML 10ML VIAL ONE (07:55)
[2016-10-08] MEDS: INSULIN (NOVOLOG) ASPART 100 UNITS/ML 10ML VIAL SQ SCH (08:00)
--- NOTE | 2016-10-08 09:31 | DS ---
[facility] Detox Discharge Summary Admission Date: 10/04/16 Discharge Date: 10/08/16 - History Present History: Alcohol Dependence, Cocaine Dependence, Opioid Dependence Additional Comments: FOLLOW UP WITH AFTER CARE PROGRAM ARRANGEMENT [facility] Pertinent Past History: HEPATITIS C IDDM MMTP FRACTURE OF ZYGOMATIC ARCH FRACTURE OF LEFT INDEX WITH DEFORMITY - Physical Exam Results Vital Signs: Vital Signs Temperature 97.3 F L 10/08/16 06:00 Pulse Rate 59 L 10/08/16 06:00 Respiratory Rate 18 10/08/16 06:00 Blood Pressure 130/66 10/08/16 06:00 O2 Sat by Pulse Oximetry (%) - Treatment Hospital Course: Detox Protocol Followed, Detoxed Safely, Responded well, Discharged Condition Good - Medication Discharge Medications: Ambulatory Orders Insulin Glargine,Hum.rec.anlog [Lantus Solostar PEN -] 30 units SQ HS 05/23/16 Metformin HCl [Glucophage -] 500 mg PO BID 05/23/16 - Diagnosis (1) Alcohol dependence with uncomplicated withdrawal Current Visit: No Status: Acute (2) Cocaine dependence, uncomplicated Current Visit: No Status: Acute (3) Opioid dependence Current Visit: No Status: Acute (4) Hepatitis C Current Visit: No Status: Chronic Qualifiers: Viral hepatitis chronicity: unspecified Hepatic coma status: without hepatic coma Qualified Code(s): B19.20 - Unspecified viral hepatitis C without hepatic coma (5) Insulin dependent diabetes mellitus Current Visit: No Status: Chronic (6) Nicotine dependence Current Visit: No Status: Chronic Qualifiers: Nicotine product type: cigarettes Substance use status: in withdrawal Qualified Code(s): F17.213 - Nicotine dependence, cigarettes, with withdrawal (7) Zygomatic fracture Current Visit: Yes Status: Acute (8) Methadone maintenance therapy patient Current Visit: Yes Status: Acute (9) Fracture of phalanx of left index finger Current Visit: Yes Status: Acute - AMA Did Patient Leave Against Medical Advice: No
[2016-10-08 10:11] VITALS: BP 127/79; PULSE 61; TEMP 98.1
[2016-10-08] MEDS: PRENATAL VITAMINS W/ FOLIC ACID TABLET (FP) PO SCH (11:37)
== END 2016-10-08 11:55 | disposition home or self-care (01) | DRG 773 ==
LOC: YASAS 14:57 → Y6N 16:43
PROVIDERS: ADMIT Internal Medicine; ATTEND Internal Medicine
PROC: HZ2ZZZZ Detoxification Services for Substance Abuse Treatment (ICD-10-PCS; principal; 2016-10-04)
DX: F10.230 Alcohol dependence with withdrawal, uncomplicated (principal); F11.20 Opioid dependence, uncomplicated; F14.20 Cocaine dependence, uncomplicated; F17.213 Nicotine dependence, cigarettes, with withdrawal; B19.20 Unspecified viral hepatitis C without hepatic coma; E11.9 Type 2 diabetes mellitus without complications; Z91.14 Patient's other noncompliance with medication regimen; Z79.4 Long term (current) use of insulin; Z79.84 Long term (current) use of oral hypoglycemic drugs; Z87.81 Personal history of (healed) traumatic fracture
CPT/HCPCS: 36415; 80053; 81003; 85027; 86593; 93005; 93010

== ENCOUNTER 2019-10-29 18:47 | Inpatient (IN) | payer OTHER ==
--- NOTE | 2019-10-29 21:20 | HP ---
CIWA Score Nausea/Vomitin-No Nausea/No Vomiting Muscle Tremors: 4-Moderate,w/Arms Extend Anxiety: 4-Mod. Anxious/Guarded Agitation: 4-Moderately Restless Paroxysmal Sweats: 3 Orientation: 1-Uncertain about Date Tacttile Disturbances: 0-None Auditory Disturbances: 0-None Visual Disturbances: 0-None Headache: 0-None Present CIWA-Ar Total Score: 16 - Admission Criteria OASAS Guidelines: Admission for Medically Managed Detox: Requires at least one of the followin. CIWA greater than 12 2. Seizures within the past 24 hours 3. Delirium tremens within the past 24 hours 4. Hallucinations within the past 24 hours 5. Acute intervention needed for co occurring medical disorder 6. Acute intervention needed for co occurring psychiatric disorder 7. Severe withdrawal that cannot be handled at a lower level of care (continued vomiting, continued diarrhea, abnormal vital signs) requiring intravenous medication and/or fluids 8. Patient presents the following: CIWA greater than 12 Admission Criteria Met: Admission criteria met Admitting History and Physical - Smoking History Smoking history: Current every day smoker Have you smoked in the past 12 months: Yes Aproximately how many cigarettes per day: 10 - Alcohol/Substance Use Hx Alcohol Use: Yes Admission [facility] Chief Complaint: c/o withdrawal sx's. seeking detox Allergies/Adverse Reactions: Allergies Allergy/AdvReac Type Severity Reaction Status Date / Time No Known Allergies Allergy Verified 10/30/19 00:14 History of Present Illness: HERE FOR ALCOHOL DETOX. CLIENT IS SELF REFERRED. KNOWN TO PROGRAM. LAST HERE 2017. REPORTS DAILY ALCOHOL ABUSE. LAST DRANK YESTERDAY. PRESENTS WITH C/O WITHDRAWAL SX'S. 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 HE ALSO REPORTS XANAX AND RIANA, CANNABIS AND OPIATE ABUSE. HIS UTOX IS NEGATIVE FOR BENZO. HE WAS INFORMED. HE IS ALOS ON MMTP AT [facility] WITH A REPORTED DAILY DOSE OF 60 MG DAILY. L DM TODAY/ PENDING VERIFICATION. + IVDU, DENIES HX/O DRUG OVERDOSE. REPORTS MOST RECENT CLEAN TIME 2 YEARS RELAPSING 4 MONTHS AGO. LIVES ALONE, UNEMPLOYED, DENIES LEGALS Exam Limitations: No Limitations - Ebola screening Have you traveled outside of the country in the last 21 days: No Have you had contact with anyone from an Ebola affected area: No Have you been sick,other than usual withdrawal symptoms: No Do you have a fever: No - Review of Systems Constitutional: Chills, Malaise, Night Sweats, Changes in sleep EENT: reports: No Symptoms Reported Respiratory: reports: No Symptoms reported Cardiac: reports: No Symptoms Reported GI: reports: No Symptoms Reported : reports: No Symptoms Reported Musculoskeletal: reports: No Symptoms Reported Integumentary: reports: Flushing, Sweating Neuro: reports: Tremors Endocrine: reports: Other (DM) Hematology: reports: No Symptoms Reported Psychiatric: reports: Orientated x3, Agitated (IRRITBALE), Anxious Other Systems: Reviewed and Negative Patient History - Patient Medical History Hx Anemia: No Hx Asthma: No Hx Chronic Obstructive Pulmonary Disease (COPD): No Hx Cancer: No Hx Cardiac Disorders: No Hx Congestive Heart Failure: No Hx Hypertension: Yes (LISINOPRIL) Hx Hypercholesterolemia: Yes Hx Pacemaker: No HX Cerebrovascular Accident: No Hx Seizures: No Hx Dementia: No Hx Diabetes: Yes (METFORMIN) Hx Gastrointestinal Disorders: No Hx Liver Disease: No Hx Genitourinary Disorders: No Hx Sexually Transmitted Disorders: No Hx Renal Disease (ESRD): No Hx Thyroid Disease: No Hx Human Immunodeficiency Virus (HIV): No Hx Hepatitis C: Yes ( treated) Hx Depression: No (Not on medication) Hx Suicide Attempt: No (Denies suicide attempt and suicidal ideation at this time) Hx Bipolar Disorder: No Hx Schizophrenia: No Other Medical History: ANXIETY - Patient Surgical History Past Surgical History: Yes Hx Neurologic Surgery: No Hx Cataract Extraction: No Hx Cardiac Surgery: No Hx Lung Surgery: No Hx Breast Surgery: No Hx Breast Biopsy: No Hx Abdominal Surgery: No Hx Appendectomy: No Hx Cholecystectomy: No Hx Genitourinary Surgery: No Hx Section: No Hx Orthopedic Surgery: Yes (right facial fx in may) Other Surgical History: right mandible 04/2016 Anesthesia Reaction: No - PPD History Previous Implant?: Yes Documented Results: Negative w/proof Implanted On Prior R Admission?: Yes Date: 01/29/16 Results: 0 mm PPD to be Administered?: Yes - Smoking Cessation Smoking history: Current every day smoker Have you smoked in the past 12 months: Yes Aproximately how many cigarettes per day: 5 Cigars Per Day: 0 Hx Chewing Tobacco Use: No Initiated information on smoking cessation: Yes 'Breaking Loose' booklet given: 10/29/19 - Substance & Tx. History Hx Alcohol Use: Yes Hx Substance Use: Yes Substance Use Type: Alcohol, Cocaine, Heroin, Marijuana, Prescribed (MTTP), Tranquilizers (XANAX) Hx Substance Use Treatment: Yes ([facility]) - Substances abused Alcohol Other (specify): BEER/LIQUOR Substance route: Oral Frequency: Daily Amount used: 1-6PACK/1PINT Age of first use: 24 Date of last use: 10/28/19 Heroin Substance route: Injection Frequency: Daily Amount used: 20 BAGS Age of first use: 16 Date of last use: 10/29/19 Alprazolam (Xanax) Substance route: Oral Frequency: 3-6 times per week (3X) Amount used: 2MG Age of first use: 28 Date of last use: 10/25/19 Cocaine Substance route: Injection Frequency: Daily (SPEEDBALL) Amount used: 2GM Age of first use: 15 Date of last use: 10/29/19 Marijuana/Hashish Substance route: Smoking Frequency: Daily Amount used: DIME Age of first use: 12 Date of last use: 10/26/19 Crystal meth Substance route: Injection Frequency: 1-2 times per week (2X) Amount used: 1GM Age of first use: 47 Date of last use: 10/28/19 Admission Physical Exam [facility] - Physical General Appearance: Yes: Moderate Distress, Irritable, Anxious HEENTM: Yes: EOMI, Normocephalic, Normal Voice, ANURAG, Pharynx Normal Respiratory: Yes: Chest Non-Tender, Lungs Clear, Normal Breath Sounds, No Respiratory Distress, No Accessory Muscle Use Neck: Yes: No masses,lesions,Nodules, Supple, Trachea in good position Breast: Yes: Breasts Symetrical Cardiology: Yes: Regular Rhythm, S1, S2, Tachycardia Abdominal: Yes: Non Tender, Soft, Increased Bowel Sounds Genitourinary: Yes: Within Normal Limits Back: Yes: Within Normal Limits Musculoskeletal: Yes: full range of Motion, Gait Steady Extremities: Yes: Normal Capillary Refill, Normal Range of Motion, Non-Tender Neurological: Yes: Fully Oriented, Alert, Motor Strength 5/5 Integumentary: Yes: Dry, Warm, Track Sosa (neck/ arms) Lymphatic: Yes: Within Normal Limits - Diagnostic (1) IVDU (intravenous drug user) Current Visit: Yes Status: Acute (2) Track sosa due to intravenous drug abuse Current Visit: Yes Status: Acute (3) Depressed affect Current Visit: Yes Status: Acute (4) Alcohol dependence with uncomplicated withdrawal Current Visit: No Status: Acute (5) Anxiety disorder Current Visit: No Status: Acute (6) Cocaine dependence, uncomplicated Current Visit: Yes Status: Acute (7) Methadone maintenance therapy patient Current Visit: Yes Status: Chronic (8) Insulin dependent diabetes mellitus Current Visit: Yes Status: Chronic (9) Nicotine dependence Current Visit: Yes Status: Chronic Qualifiers: Nicotine product type: cigarettes Substance use status: in withdrawal Qualified Code(s): F17.213 - Nicotine dependence, cigarettes, with withdrawal (10) HTN (hypertension) Current Visit: Yes Status: Chronic Qualifiers: Hypertension type: essential hypertension Qualified Code(s): I10 - Essential (primary) hypertension (11) HLD (hyperlipidemia) Current Visit: Yes Status: Chronic Qualifiers: Hyperlipidemia type: unspecified Qualified Code(s): E78.5 - Hyperlipidemia, unspecified Cleared for Admission S - Detox or Rehab [facility] Level of Care: Medically Managed Detox Regimen/Protocol: Librium Claeared for Rehab Admission: No Breathalyzer - Breathalyzer Breathalyzer: 0 Urine Drug Screen - Test Device Lot number: [id number] Expiration date: 06/02/21 - Control Is test valid?: Yes - Results Drug screen NEGATIVE: No Urine drug screen results: THC-Marijuana, RIANA-Cocaine, MET-Methamphetamine, AMP- Amphetamines, MOP-Opiates, MTD-Methadone, MDMA-Ecstasy Inpatient Rehab Admission - Rehab Decision to Admit Inpatient rehab admission?: No
[2019-10-29] MEDS ORDERED: NICOTINE POLACRILEX 2 MG GUM BUC PRN (23:46)
[2019-10-29] MEDS ORDERED: MAGNESIUM CITRATE 300 ML BOTTLE PO PRN (23:46)
[2019-10-29] MEDS ORDERED: MAGNESIUM HYDROX 2400MG/30ML ORAL SUSPENSION 30 ML CUP PO PRN (23:46)
[2019-10-29] MEDS ORDERED: MENTHOL/PHENOL 1 EACH UD MM PRN (23:46)
[2019-10-29] MEDS ORDERED: P-EPHED 60MG/TRIPROLIDI 2.5MG TABLET PO PRN (23:46)
[2019-10-29] MEDS ORDERED: hydrOXYzine PAMOATE 25 MG CAPSULE (FP) PO PRN (23:46)
[2019-10-29] MEDS ORDERED: METHOCARBAMOL 500 MG TABLET PO PRN (23:46)
[2019-10-29] MEDS ORDERED: guaiFENesin 200 MG/10 ML 10 ML UNIT-DOSE CUPS PO PRN (23:46)
[2019-10-29] MEDS ORDERED: MAG HYDROX/AL HYDROX/SIMETH 30 ML UNIT-DOSE CUP PO PRN (23:46)
[2019-10-29] MEDS ORDERED: chlordiazePOXIDE HCL 25 MG CAPSULE PO PRN (23:46)
[2019-10-29] MEDS ORDERED: BISMUTH SUBSALICYLATE 524 MG/30 ML UD PO PRN (23:46)
[2019-10-29] MEDS ORDERED: IBUPROFEN 400 MG TABLET (FP) PO PRN (23:46)
[2019-10-29] MEDS ORDERED: ONDANSETRON *ODT* 4 MG TABLET SL PRN (23:46)
[2019-10-29] MEDS ORDERED: DICYCLOMINE HCL 10 MG CAPSULE PO PRN (23:46)
[2019-10-29] MEDS ORDERED: ACETAMINOPHEN 325 MG TABLET (FP) PO PRN ×2 (23:46)
[2019-10-30] MEDS: chlordiazePOXIDE HCL 25 MG CAPSULE PO SCH ×5 (00:01→22:10)
[2019-10-30] MEDS ORDERED: metFORMIN HCL 500 MG TABLET (FP) PO SCH (07:00)
[2019-10-30] MEDS: NICOTINE 14 MG/24 HOURS TOPICAL PATCH TD SCH (10:43)
[2019-10-30] MEDS: PRENATAL VITAMINS W/ FOLIC ACID TABLET (FP) PO SCH (10:43)
[2019-10-30] MEDS: LISINOPRIL 20 MG TABLET (FP) PO SCH (10:44)
[2019-10-30] MEDS ORDERED: METHADONE HCL 10 MG TABLET PO SCH (11:15)
[2019-10-30 12:27] LABS: HEMATOCRIT 35.3 % (35.4-49); HEMOGLOBIN 11.3 GM/dL (11.7-16.9); MCH 28.2 pg (25.7-33.7); MEAN CELL VOLUME 88.1 fl (80-96); MEAN PLT VOLUME 7.8 fl (7.5-11.1); PLATELET COUNT 358 K/MM3 (134-434); RDW 14.6 % (11.9-15.9); WHITE BLOOD COUNT 7.7 K/mm3 (4.0-10.0)
[2019-10-30 12:40] LABS: ALBUMIN 3.2 g/dl (3.4-5.0); BILIRUBIN,TOTAL 0.7 mg/dL (0.2-1); BLOOD UREA NITROGEN 38.5 mg/dL (7-18); CREATININE 1.4 mg/dL (0.55-1.3); POTASSIUM 4.3 mmol/L (3.5-5.1); TOT PROT 7.2 g/dl (6.4-8.2)
[2019-10-30] MEDS ORDERED: METHADONE HCL 10 MG TABLET PO ONE (12:52)
--- NOTE | 2019-10-30 12:54 | CONSULT ---
[facility] Psychiatric Consult - Data Date of interview: 10/30/19 Admission source: [facility] Identifying data: Readmission to [facility] at [address] [place] [address] for this 49 y/o male self-referred for detoxification treatment. ERIK issues : alcohol, cannabis, heroin, cocaine, benzodiazepine (xanax), nicotine. Patient is , father of seven, homeless, unemployed and supported on welfare. Substance Abuse History: Discussed with the patient. ERIK issues as follows : Smoking history: Current every day smoker. Have you smoked in the past 12 months: Yes. Aproximately how many cigarettes per day: 5. Cigars Per Day: 0. Hx Chewing Tobacco Use: No. Initiated information on smoking cessation: Yes. 'Breaking Loose' booklet given: 10/29/19. - Substance & Tx. History. Hx Alcohol Use: Yes. Hx Substance Use: Yes. Substance Use Type: Alcohol, Cocaine, Heroin, Marijuana, Prescribed (MTTP), Tranquilizers (XANAX). Hx Substance Use Treatment: Yes ([facility]). - Substances abused. Alcohol. Other (specify): BEER/LIQUOR. Substance route: Oral. Frequency: Daily. Amount used: 1- 6PACK/1PINT. Age of first use: 24. Date of last use: 10/28/19. Heroin. Substance route: Injection. Frequency: Daily. Amount used: 20 BAGS. Age of first use: 16. Date of last use: 10/29/19. Alprazolam (Xanax). Substance route: Oral. Frequency: 3-6 times per week (3X). Amount used: 2MG. Age of first use: 28. Date of last use: 10/25/19. Cocaine. Substance route: Injection. Frequency: Daily (SPEEDBALL). Amount used: 2GM. Age of first use: 15. Date of last use: 10/29/19. Marijuana/Hashish. Substance route: Smoking. Frequency: Daily. Amount used: DIME. Age of first use: 12. Date of last use: 10/26/19. Crystal meth. Substance route: Injection. Frequency: 1-2 times per week (2X). Amount used: 1GM. Age of first use: 47. Date of last use: 10/28/19. History of multiple ERIK treatment failures. Medical History: Medical history is remarkable for hepatitis C and diabetes mellitus. No known allergies. Psychiatric History: Patient denies history of psychiatric hospitalizations, OPD care or suicide attempts. Physical/Sexual Abuse/Trauma History: Patient denies. Additional Comment: Urine drug screen results: THC-Marijuana, RIANA-Cocaine, MET- Methamphetamine, AMP-Amphetamines, MOP-Opiates, MTD-Methadone, MDMA-Ecstasy. Noted. Mental Status Exam - Mental Status Exam Alert and Oriented to: Time, Place, Person Cognitive Function: Good Patient Appearance: Unkempt, Disheveled (tattoos on both upper extremities) Mood: Nervous, Withdrawn, Irritable Affect: Mood Congruent, Constricted Patient Behavior: Fatigued, Appropriate, Cooperative Speech Pattern: Clear, Appropriate Voice Loudness: Normal Thought Process: Goal Oriented Thought Disorder: Not Present Hallucinations: Denies Suicidal Ideation: Denies Homicidal Ideation: Denies Insight/Judgement: Poor Sleep: Well Appetite: Good Gait/Station: Normal Psychiatric Findings - Problem List ([place] 1, 2,3) (1) Alcohol dependence with uncomplicated withdrawal Current Visit: Yes Status: Acute (2) Opioid dependence on agonist therapy Current Visit: Yes Status: Chronic (3) Cocaine dependence Current Visit: Yes Status: Chronic Qualifiers: Substance use status: uncomplicated Qualified Code(s): F14.20 - Cocaine dependence, uncomplicated (4) Nicotine dependence Current Visit: Yes Status: Chronic Qualifiers: Nicotine product type: cigarettes Substance use status: in withdrawal Qualified Code(s): F17.213 - Nicotine dependence, cigarettes, with withdrawal (5) Benzodiazepine dependence Current Visit: Yes Status: Chronic (6) Cannabis dependence Current Visit: Yes Status: Chronic (7) Substance induced mood disorder Current Visit: Yes Status: Chronic - Initial Treatment Plan Initial Treatment Plan: Psychoeducation. Sleep hygiene. Support. Detoxification. Observation.
--- NOTE | 2019-10-30 12:56 | PN ---
S Progress Note Note: patient is on methadone maintenance ,received methadone 50 mgs yesterday,on built up,the dose for today is 60 mgs
[2019-10-30] MEDS ORDERED: METHADONE HCL 10 MG TABLET ONE (13:57)
[2019-10-30] MEDS ORDERED: METHADONE HCL 40 MG DISPERSABLE TABLET ONE (13:58)
[2019-10-30] MEDS: METHADONE 40 MG, METHADONE 20 MG PO SCH (14:09)
--- NOTE | 2019-10-30 15:55 | PN ---
S CIWA - CIWA Score Nausea/Vomitin Muscle Tremors: 3 Anxiety: 3 Agitation: 3 Paroxysmal Sweats: 1-Minimal Palms Moist Orientation: 0-Oriented Tacttile Disturbances: 1-Very Mild Itch/Numbness Auditory Disturbances: 0-None Visual Disturbances: 0-None Headache: 2-Mild CIWA-Ar Total Score: 15 BHS Progress Note (SOAP) Subjective: alert,irritable,anxious,interrupted sleep,tremor,aching pain,nausea Objective: 10/30/19 15:51 Vital Signs Temperature 98.0 F 10/30/19 12:59 Pulse Rate 66 10/30/19 12:59 Respiratory Rate 18 10/30/19 12:59 Blood Pressure 122/76 10/30/19 12:59 O2 Sat by Pulse Oximetry (%) 97 10/30/19 12:59 Assessment: 10/30/19 15:51 Vital Signs Temperature 98.0 F 10/30/19 12:59 Pulse Rate 66 10/30/19 12:59 Respiratory Rate 18 10/30/19 12:59 Blood Pressure 122/76 10/30/19 12:59 O2 Sat by Pulse Oximetry (%) 97 10/30/19 12:59 Laboratory Last Values WBC 7.7 K/mm3 (4.0-10.0) 10/30/19 08:40 RBC 4.00 M/mm3 (4.00-5.60) 10/30/19 08:40 Hgb 11.3 GM/dL (11.7-16.9) L 10/30/19 08:40 Hct 35.3 % (35.4-49) L 10/30/19 08:40 MCV 88.1 fl (80-96) 10/30/19 08:40 MCH 28.2 pg (25.7-33.7) 10/30/19 08:40 MCHC 32.0 g/dl (32.0-35.9) 10/30/19 08:40 RDW 14.6 % (11.9-15.9) 10/30/19 08:40 Plt Count 358 K/MM3 (134-434) 10/30/19 08:40 MPV 7.8 fl (7.5-11.1) 10/30/19 08:40 Sodium 136 mmol/L (136-145) 10/30/19 08:40 Potassium 4.3 mmol/L (3.5-5.1) 10/30/19 08:40 Chloride 102 mmol/L (98-107) 10/30/19 08:40 Carbon Dioxide 28 mmol/L (21-32) 10/30/19 08:40 Anion Gap 7 MMOL/L (8-16) L 10/30/19 08:40 BUN 38.5 mg/dL (7-18) H 10/30/19 08:40 Creatinine 1.4 mg/dL (0.55-1.3) H 10/30/19 08:40 Est GFR (CKD-EPI)AfAm 68.37 10/30/19 08:40 Est GFR (CKD-EPI)NonAf 58.99 10/30/19 08:40 POC Glucometer 233 UNITS (80-120) 10/30/19 05:40 Random Glucose 250 mg/dL (74-106) H 10/30/19 08:40 Calcium 9.0 mg/dL (8.5-10.1) 10/30/19 08:40 Total Bilirubin 0.7 mg/dL (0.2-1) 10/30/19 08:40 AST 9 U/L (15-37) L 10/30/19 08:40 ALT 17 U/L (13-61) 10/30/19 08:40 Alkaline Phosphatase 124 U/L (45-117) H 10/30/19 08:40 Total Protein 7.2 g/dl (6.4-8.2) 10/30/19 08:40 Albumin 3.2 g/dl (3.4-5.0) L 10/30/19 08:40 Syphilis Serology Non-reactive (NONREACTIVE) 10/30/19 08:40 r/o renal insufficiency will d/c metformin Plan: withdrawal symptom,continue detox librium regimen,encourage oral fluid,water,d/c metformin,bgm monitoring achs,on insulin coverage , on methadone maintenance 60 mgs/day,hb a1c
[2019-10-30 17:22] LABS: URINE APPEARANCE CLEAR; URINE BILIRUBIN NEGATIVE (NEGATIVE); URINE COLOR YELLOW; URINE GLUCOSE (UA) 3+ (NEGATIVE); URINE KETONE NEGATIVE (NEGATIVE); URINE LEUK ESTERASE NEGATIVE (NEGATIVE); URINE NITRITE NEGATIVE (NEGATIVE); URINE PROTEIN TRACE (NEGATIVE)
[2019-10-30] MEDS: INSULIN SLIDING SCALE (NOVOLOG) 1 VIAL SQ SCH ×2 (17:37→22:12)
[2019-10-30] MEDS ORDERED: MELATONIN 5 MG TABLETS PO SCH (22:00)
[2019-10-30] MEDS ORDERED: THIAMINE HCL 100 MG TABLET (FP) PO SCH (22:00)
[2019-10-31] MEDS ORDERED: METHADONE HCL 40 MG DISPERSABLE TABLET ONE (04:12)
[2019-10-31] MEDS ORDERED: METHADONE HCL 10 MG TABLET ONE (04:12)
[2019-10-31] MEDS ORDERED: METHADONE HCL 10 MG TABLET PO SCH (06:00)
[2019-10-31] MEDS: chlordiazePOXIDE HCL 25 MG CAPSULE PO SCH ×2 (06:24→10:12)
[2019-10-31] MEDS: METHADONE 40 MG, METHADONE 20 MG PO SCH (06:24)
[2019-10-31] MEDS: INSULIN SLIDING SCALE (NOVOLOG) 1 VIAL SQ SCH ×2 (07:10→11:06)
--- NOTE | 2019-10-31 09:42 | PN ---
S CIWA - CIWA Score Nausea/Vomitin-No Nausea/No Vomiting Muscle Tremors: 2 Anxiety: 3 Agitation: 0-Normal Activity Paroxysmal Sweats: 3 Orientation: 0-Oriented Tacttile Disturbances: 0-None Auditory Disturbances: 0-None Visual Disturbances: 0-None Headache: 2-Mild CIWA-Ar Total Score: 10 S Progress Note (SOAP) Subjective: c/o sweats, headache, anxiety, and shakes. Objective: Vital Signs 10/31/19 10/31/19 06:18 08:38 Temperature 97.3 F L 97.3 F L Pulse Rate 88 77 Respiratory 18 18 Rate Blood Pressure 120/69 116/77 O2 Sat by Pulse 97 Oximetry (%) Laboratory Last Values WBC 7.7 K/mm3 (4.0-10.0) 10/30/19 08:40 RBC 4.00 M/mm3 (4.00-5.60) 10/30/19 08:40 Hgb 11.3 GM/dL (11.7-16.9) L 10/30/19 08:40 Hct 35.3 % (35.4-49) L 10/30/19 08:40 MCV 88.1 fl (80-96) 10/30/19 08:40 MCH 28.2 pg (25.7-33.7) 10/30/19 08:40 MCHC 32.0 g/dl (32.0-35.9) 10/30/19 08:40 RDW 14.6 % (11.9-15.9) 10/30/19 08:40 Plt Count 358 K/MM3 (134-434) 10/30/19 08:40 MPV 7.8 fl (7.5-11.1) 10/30/19 08:40 Sodium 139 mmol/L (136-145) 10/31/19 07:25 Potassium 4.7 mmol/L (3.5-5.1) 10/31/19 07:25 Chloride 106 mmol/L (98-107) 10/31/19 07:25 Carbon Dioxide 27 mmol/L (21-32) 10/31/19 07:25 Anion Gap 6 MMOL/L (8-16) L 10/31/19 07:25 BUN 37.7 mg/dL (7-18) H 10/31/19 07:25 Creatinine 1.2 mg/dL (0.55-1.3) 10/31/19 07:25 Est GFR (CKD-EPI)AfAm 82.38 10/31/19 07:25 Est GFR (CKD-EPI)NonAf 71.08 10/31/19 07:25 POC Glucometer 267 UNITS (80-120) 10/31/19 11:04 Random Glucose 174 mg/dL (74-106) H 10/31/19 07:25 Hemoglobin A1c % 9.2 % (4.2-6.3) H 10/31/19 07:25 Calcium 8.8 mg/dL (8.5-10.1) 10/31/19 07:25 Total Bilirubin 0.7 mg/dL (0.2-1) 10/30/19 08:40 AST 9 U/L (15-37) L 10/30/19 08:40 ALT 17 U/L (13-61) 10/30/19 08:40 Alkaline Phosphatase 124 U/L (45-117) H 10/30/19 08:40 Total Protein 7.2 g/dl (6.4-8.2) 10/30/19 08:40 Albumin 3.2 g/dl (3.4-5.0) L 10/30/19 08:40 Urine Color Yellow 10/30/19 15:17 Urine Appearance Clear 10/30/19 15:17 Urine pH 6.0 (5.0-8.0) 10/30/19 15:17 Ur Specific [place] 1.024 (1.010-1.035) 10/30/19 15:17 Urine Protein Trace (NEGATIVE) 10/30/19 15:17 Urine Glucose (UA) 3+ (NEGATIVE) H 10/30/19 15:17 Urine Ketones Negative (NEGATIVE) 10/30/19 15:17 Urine Blood Negative (NEGATIVE) 10/30/19 15:17 Urine Nitrite Negative (NEGATIVE) 10/30/19 15:17 Urine Bilirubin Negative (NEGATIVE) 10/30/19 15:17 Urine Urobilinogen 1.0 mg/dL (0.2-1.0) 10/30/19 15:17 Ur Leukocyte Esterase Negative (NEGATIVE) 10/30/19 15:17 Syphilis Serology Non-reactive (NONREACTIVE) 10/30/19 08:40 Labs noted. Assessment: 10/31/19 09:40 AOX3, in no acute respiratory distress. Full ROM, ambulating in the unit. Withdrawal symptoms. Plan: continue detox.
[2019-10-31] MEDS: PRENATAL VITAMINS W/ FOLIC ACID TABLET (FP) PO SCH (10:12)
[2019-10-31] MEDS: LISINOPRIL 20 MG TABLET (FP) PO SCH (10:12)
[2019-10-31] MEDS: NICOTINE 14 MG/24 HOURS TOPICAL PATCH TD SCH (10:14)
[2019-10-31 10:27] LABS: BLOOD UREA NITROGEN 37.7 mg/dL (7-18); CALCIUM 8.8 mg/dL (8.5-10.1); CREATININE 1.2 mg/dL (0.55-1.3); POTASSIUM 4.7 mmol/L (3.5-5.1)
--- NOTE | 2019-10-31 15:00 | EKG ---
Test Reason : Blood Pressure : / mmHG Vent. Rate : 062 BPM Atrial Rate : 062 BPM P-R Int : 166 ms QRS Dur : 086 ms QT Int : 440 ms P-R-T Axes : 066 050 041 degrees QTc Int : 446 ms NORMAL SINUS RHYTHM NORMAL ECG WHEN COMPARED WITH ECG OF 02-FEB-2017 17:27, NO SIGNIFICANT CHANGE WAS FOUND Confirmed by Jackson Hoffman ([id number]) on 10/31/2019 3:00:30 PM Referred By: DIVINE ALVARADO Confirmed By:Jackson Hoffman
[2019-10-31 17:11] VITALS: BP 134/69; PULSE 90; TEMP 97.3
--- NOTE | 2019-10-31 22:37 | DS ---
[facility] Detox Discharge Summary Admission Date: 10/29/19 Discharge Date: 10/31/19 - History Present History: Alcohol Dependence, Cocaine Dependence, MMTP Additional Comments: CLIENT REQUESTING TO SIGN OUT FOR PERSONAL REASONS. ATTEMPTS TO ENCOURAGE CLIENT TO CONT TXMENT FAILED. CLIENT IS A/O X3 NAD AMBULATING SELF W/O DIFFICULTY DENIES SOB, C.P SKIN INTACT CLIENT REPORTS HE HAS HIS HOME MEDS Pertinent Past History: IDDM HLD HTN NICOTINE DEP MMTP - Physical Exam Results Vital Signs: Vital Signs Temperature 97.3 F L 10/31/19 16:20 Pulse Rate 90 10/31/19 16:20 Respiratory Rate 18 10/31/19 16:20 Blood Pressure 134/69 10/31/19 16:20 O2 Sat by Pulse Oximetry (%) 100 10/31/19 16:20 Pertinent Admission Physical Exam Findings: WITHDRAWAL SX'S Laboratory Tests 10/29/19 10/30/19 10/30/19 23:00 05:40 08:40 WBC RBC Hgb Hct MCV MCH MCHC RDW Plt Count MPV Sodium Potassium Chloride Carbon Dioxide Anion Gap BUN Creatinine Est GFR (CKD-EPI)AfAm Est GFR (CKD-EPI)NonAf POC Glucometer 233 Random Glucose Hemoglobin A1c % Calcium Total Bilirubin AST ALT Alkaline Phosphatase Total Protein Albumin Urine Color Urine Appearance Urine pH Ur Specific [place] Urine Protein Urine Glucose (UA) Urine Ketones Urine Blood Urine Nitrite Urine Bilirubin Urine Urobilinogen Ur Leukocyte Esterase Syphilis Serology Non-reactive COVID-19 (JUNE) Not detected 10/30/19 10/30/19 10/30/19 08:40 08:40 15:17 WBC 7.7 RBC 4.00 Hgb 11.3 L Hct 35.3 L MCV 88.1 MCH 28.2 MCHC 32.0 RDW 14.6 Plt Count 358 MPV 7.8 Sodium 136 Potassium 4.3 Chloride 102 Carbon Dioxide 28 Anion Gap 7 L BUN 38.5 H Creatinine 1.4 H Est GFR (CKD-EPI)AfAm 68.37 Est GFR (CKD-EPI)NonAf 58.99 POC Glucometer Random Glucose 250 H Hemoglobin A1c % Calcium 9.0 Total Bilirubin 0.7 AST 9 L ALT 17 Alkaline Phosphatase 124 H Total Protein 7.2 Albumin 3.2 L Urine Color Yellow Urine Appearance Clear Urine pH 6.0 Ur Specific [place] 1.024 Urine Protein Trace Urine Glucose (UA) 3+ H Urine Ketones Negative Urine Blood Negative Urine Nitrite Negative Urine Bilirubin Negative Urine Urobilinogen 1.0 Ur Leukocyte Esterase Negative Syphilis Serology COVID-19 (JUNE) 10/30/19 10/30/19 10/31/19 16:36 20:47 06:24 WBC RBC Hgb Hct MCV MCH MCHC RDW Plt Count MPV Sodium Potassium Chloride Carbon Dioxide Anion Gap BUN Creatinine Est GFR (CKD-EPI)AfAm Est GFR (CKD-EPI)NonAf POC Glucometer 274 225 186 Random Glucose Hemoglobin A1c % Calcium Total Bilirubin AST ALT Alkaline Phosphatase Total Protein Albumin Urine Color Urine Appearance Urine pH Ur Specific [place] Urine Protein Urine Glucose (UA) Urine Ketones Urine Blood Urine Nitrite Urine Bilirubin Urine Urobilinogen Ur Leukocyte Esterase Syphilis Serology COVID-19 (JUNE) 10/31/19 10/31/19 10/31/19 07:25 07:25 11:04 WBC RBC Hgb Hct MCV MCH MCHC RDW Plt Count MPV Sodium 139 Potassium 4.7 Chloride 106 Carbon Dioxide 27 Anion Gap 6 L BUN 37.7 H Creatinine 1.2 Est GFR (CKD-EPI)AfAm 82.38 Est GFR (CKD-EPI)NonAf 71.08 POC Glucometer 267 Random Glucose 174 H Hemoglobin A1c % 9.2 H Calcium 8.8 Total Bilirubin AST ALT Alkaline Phosphatase Total Protein Albumin Urine Color Urine Appearance Urine pH Ur Specific [place] Urine Protein Urine Glucose (UA) Urine Ketones Urine Blood Urine Nitrite Urine Bilirubin Urine Urobilinogen Ur Leukocyte Esterase Syphilis Serology COVID-19 (JUNE) 10/31/19 16:58 WBC RBC Hgb Hct MCV MCH MCHC RDW Plt Count MPV Sodium Potassium Chloride Carbon Dioxide Anion Gap BUN Creatinine Est GFR (CKD-EPI)AfAm Est GFR (CKD-EPI)NonAf POC Glucometer 192 Random Glucose Hemoglobin A1c % Calcium Total Bilirubin AST ALT Alkaline Phosphatase Total Protein Albumin Urine Color Urine Appearance Urine pH Ur Specific [place] Urine Protein Urine Glucose (UA) Urine Ketones Urine Blood Urine Nitrite Urine Bilirubin Urine Urobilinogen Ur Leukocyte Esterase Syphilis Serology COVID-19 (JUNE) - Treatment Hospital Course: Discharged Condition Good Patient has Accepted a Rehab Referral to: AMA. WILL REPORT TO OUT PATIENT PROGRAM - Medication Discharge Medications: Ambulatory Orders Insulin Glargine,Hum.rec.anlog [Lantus Solostar PEN -] 35 units SQ HS 08/07/17 metFORMIN HCL [Glucophage -] 1,000 mg PO BID 08/07/17 Lisinopril [Prinivil] 20 mg PO DAILY 10/30/19 - Diagnosis (1) IVDU (intravenous drug user) Status: Chronic (2) Track sosa due to intravenous drug abuse Status: Chronic (3) Depressed affect Status: Resolved (4) Alcohol dependence with uncomplicated withdrawal Status: Resolved (5) Anxiety disorder Status: Chronic (6) Cocaine dependence, uncomplicated Status: Chronic (7) Methadone maintenance therapy patient Status: Chronic (8) Insulin dependent diabetes mellitus Status: Chronic (9) Nicotine dependence Status: Chronic Qualifiers: Nicotine product type: cigarettes Substance use status: in withdrawal Qualified Code(s): F17.213 - Nicotine dependence, cigarettes, with withdrawal (10) HTN (hypertension) Status: Chronic Qualifiers: Hypertension type: essential hypertension Qualified Code(s): I10 - Essential (primary) hypertension (11) HLD (hyperlipidemia) Status: Chronic Qualifiers: Hyperlipidemia type: unspecified Qualified Code(s): E78.5 - Hyperlipidemia, unspecified - AMA Did Patient Leave Against Medical Advice: Yes
[2019-11-01] MEDS ORDERED: chlordiazePOXIDE HCL 10 MG CAPSULE PO PRN
[2019-11-01] MEDS ORDERED: chlordiazePOXIDE HCL 10 MG CAPSULE PO SCH (05:00)
[2019-11-02] MEDS ORDERED: chlordiazePOXIDE HCL 10 MG CAPSULE PO SCH (05:00)
[2019-11-03] MEDS ORDERED: chlordiazePOXIDE HCL 10 MG CAPSULE PO ONE (05:00)
== END 2019-10-31 11:00 | disposition left against medical advice (07) | DRG 770 ==
LOC: YASAS 18:47 → Y3N 21:51
PROVIDERS: ADMIT Allergy & Immunology; ATTEND Allergy & Immunology
PROC: HZ2ZZZZ Detoxification Services for Substance Abuse Treatment (ICD-10-PCS; principal; 2019-10-29)
DX: F10.230 Alcohol dependence with withdrawal, uncomplicated (principal); F11.20 Opioid dependence, uncomplicated; F14.20 Cocaine dependence, uncomplicated; F13.20 Sedative, hypnotic or anxiolytic dependence, uncomplicated; F15.20 Other stimulant dependence, uncomplicated; F12.20 Cannabis dependence, uncomplicated; F17.210 Nicotine dependence, cigarettes, uncomplicated; F19.24 Other psychoactive substance dependence with psychoactive substance-induced mood disorder; F41.9 Anxiety disorder, unspecified; I10 Essential (primary) hypertension; E78.5 Hyperlipidemia, unspecified; E11.9 Type 2 diabetes mellitus without complications; Z79.4 Long term (current) use of insulin; B18.2 Chronic viral hepatitis C; R45.89 Other symptoms and signs involving emotional state; N28.9 Disorder of kidney and ureter, unspecified; Z56.0 Unemployment, unspecified; Z59.0 Homelessness
CPT/HCPCS: 36415; 80048; 80053; 81003; 82962; 83036; 85027; 86780; 93005; 93010; U0003